=== PATIENT | male | born 1935 | race Asian ===

== ENCOUNTER 2017-04-17 15:09 | Inpatient (IN) | payer OTHER ==
[~2017-04-17] VITALS: Ht 167.6 cm; Wt 77.1 kg
[~2017-04-17 15:09] MED LIST: 384 PO; ALFUZOSIN HYDRO10 MG PO; AZOPT OPTH OD; AZOR 5 MG-40 MG1 TAB PO; BONIVA150 M1 PO; BYSTOLIC10 M1 PO; CARDURA8 MG PO; CARVEDILOL12.5 MG PO; CEL100 PO; CELEBREX200 MG PO; CLOPIDOGREL75 MG PO; CRESTOR20 M1 PO; CRESTOR20 MG PO; DESMOPRESSIN0.2 MG PO; DIABETA5 MG PO; DOCUSATE CALCI250 MG PO; ESCITALOPRAM10 MG PO; GABARONE300 MG PO; GLYBURIDE AND M1 TA1 PO; HEP-FORTE1 CAP PO; LOVAZA1 G1 PO; LOVAZA1 GM PO; METFORMIN500 M1 PO; METOPROLOL SUCC50 M1 PO; MINOCIN PO; NEURONTIN300 MG PO; NEXIUM20 M PO; NYAMYC100000 U/G TP; PLAVIX75 MG PO; PRO40 PO; RAPAFLO8 M1 PO; RESTASIS0.051 OP; TRE400 PO; TRIBENZOR1 TA1 PO; VICTOZA6 MG/M1 SC; WELCHOL3.75 GM/Pa PO; WELCHOL625 MG PO; ZESTRIL5 MG PO; ZOLPIDEM TART10 MG PO; [UNRECOGNIZED DRUG - CODE] PO
[2017-04-17 20:56] LABS: BASOPHIL % 0.4 % (0-2); PLATELET COUNT 261 x10^3mcL (130-400); RED CELL DISTRIBUTION WIDTH 14.4 % (11.5-14.5)
[2017-04-17 21:04] LABS: CALCIUM 9.8 mg/dL (8.5-10.1); CHLORIDE SERUM 103 mmol/L (98-107); CREATININE SERUM 0.8 mg/dL (0.7-1.3); GLUCOSE SERUM 94 mg/dL (74-106); POTASSIUM SERUM 4.2 mmol/L (3.5-5.1); SODIUM SERUM 139 mmol/L (136-145)
[2017-04-17 21:08] LABS: ALBUMIN 3.6 g/dL (3.4-5.0); ALKALINE PHOSPHATASE 106 U/L (46-116); ALT/SGPT 28 U/L (16-63); AMYLASE 45 U/L (25-115); AST/SGOT 28 U/L (15-37); BILIRUBIN TOTAL 0.69 mg/dL (0.20-1.00); LIPASE 176 IU/L (73-393); TOTAL PROTEIN, SERUM 7.8 g/dL (6.4-8.2)
[2017-04-17 22:55] LABS: microscopic required? NO
[2017-04-17 23:08] LABS: UA SPECIFIC GRAVITY 1.025 (1.005-1.035); urine erythrocyte NEGATIVE (NEGATIVE)
[2017-04-18] VITALS (8 sets, daily range): BP systolic 115–168; BP diastolic 50–69; Ht 167.6 cm; Wt 77.1 kg
[2017-04-18 01:09] LABS: CHOLESTEROL/HDL RATIO 3.7
[2017-04-18 01:11] LABS: T3 TOTAL 0.68 ng/mL
[2017-04-18 01:16] LABS: FREE T4 0.94 ng/dL (0.76-1.46); FREE THYROXINE INDEX 1.9 ug/dL (1.4-4.5); T4(THYROXINE) 5.4 ug/dL (4.7-13.3)
[2017-04-19] VITALS (7 sets, daily range): BP systolic 119–160; BP diastolic 50–61
[2017-04-19 06:13] LABS: BASOPHIL % 0.3 % (0-2); PLATELET COUNT 211 x10^3mcL (130-400); RED CELL DISTRIBUTION WIDTH 14.3 % (11.5-14.5)
[2017-04-19 06:25] LABS: CALCIUM 9.1 mg/dL (8.5-10.1); CARBON DIOXIDE 28.6 mmol/L (21-32); CHLORIDE SERUM 106 mmol/L (98-107); CREATININE SERUM 0.7 mg/dL (0.7-1.3); GLUCOSE SERUM 98 mg/dL (74-106); MAGNESIUM 1.8 mg/dL (1.8-2.4); POTASSIUM SERUM 3.4 mmol/L (3.5-5.1); SODIUM SERUM 140 mmol/L (136-145)
[2017-04-20 06:18] VITALS: BP 152/62
[2017-04-20 06:20] LABS: BASOPHIL % 0.5 % (0-2); PLATELET COUNT 191 x10^3mcL (130-400)
[2017-04-20 06:40] LABS: RED CELL DISTRIBUTION WIDTH 15.4 % (11.5-14.5)
[2017-04-20 06:43] LABS: CARBON DIOXIDE 24.7 mmol/L (21-32); CHLORIDE SERUM 108 mmol/L (98-107); CREATININE SERUM 0.6 mg/dL (0.7-1.3); GLUCOSE SERUM 127 mg/dL (74-106); MAGNESIUM 1.7 mg/dL (1.8-2.4); PHOSPHOROUS 3.5 mg/dL (2.5-4.9); POTASSIUM SERUM 3.8 mmol/L (3.5-5.1); SODIUM SERUM 142 mmol/L (136-145)
[2017-04-20 08:07] VITALS: BP 155/62
[2017-04-20 21:48] VITALS: BP 147/67
[2017-04-21 05:44] VITALS: BP 128/62
[2017-04-21 06:01] LABS: BASOPHIL % 0.4 % (0-2); PLATELET COUNT 198 x10^3mcL (130-400)
[2017-04-21 06:42] LABS: CALCIUM 9.5 mg/dL (8.5-10.1); CARBON DIOXIDE 28.5 mmol/L (21-32); CHLORIDE SERUM 105 mmol/L (98-107); CREATININE SERUM 0.8 mg/dL (0.7-1.3); GLUCOSE SERUM 149 mg/dL (74-106); PHOSPHOROUS 3.8 mg/dL (2.5-4.9); POTASSIUM SERUM 3.8 mmol/L (3.5-5.1); SODIUM SERUM 142 mmol/L (136-145)
[2017-04-21 06:58] LABS: RED CELL DISTRIBUTION WIDTH 14.8 % (11.5-14.5)
[2017-04-21 09:29] VITALS: BP 112/61
[2017-04-21 17:34] VITALS: BP 146/59
[2017-04-21 21:02] VITALS: BP 126/59
[2017-04-22 06:27] LABS: CALCIUM 9.2 mg/dL (8.5-10.1); CHLORIDE SERUM 104 mmol/L (98-107); CREATININE SERUM 0.8 mg/dL (0.7-1.3); GLUCOSE SERUM 161 mg/dL (74-106); PHOSPHOROUS 3.7 mg/dL (2.5-4.9); POTASSIUM SERUM 3.8 mmol/L (3.5-5.1); SODIUM SERUM 141 mmol/L (136-145)
[2017-04-22 06:42] VITALS: BP 131/61
[2017-04-22 07:04] LABS: BASOPHIL % 0.3 % (0-2); PLATELET COUNT 194 x10^3mcL (130-400)
[2017-04-22 09:59] VITALS: BP 158/64
[2017-04-22] MEDS ORDERED: FLO4 PO (10:33)
[2017-04-22] MEDS ORDERED: SIMETHICONE80 MG CH (10:34)
[2017-04-22] MEDS ORDERED: COL100 PO (10:34)
[2017-04-22] MEDS ORDERED: MIRUD PO (10:34)
[2017-04-22] MEDS ORDERED: BACO TOP (10:36)
[2017-04-22] MEDS ORDERED: HIBICLENS118 ML TOP (10:36)
[2017-04-22 11:24] VITALS: BP 158/64
== END 2017-04-22 14:00 | DRG 388 ==
LOC: ED 15:09 → DU 23:15 → MU 23:15 → DU 04-18 00:01 → MU 04-19 07:41
PROVIDERS: Emergency Medicine; Family Medicine; Internal Medicine Gastroenterology; ADMIT Family Medicine
PROC: 0DJD8ZZ Inspection of Lower Intestinal Tract, Via Natural or Artificial Opening Endoscopic (ICD-10-PCS; principal; 2017-04-21 11:00)
PROC: 0DJD8ZZ Inspection of Lower Intestinal Tract, Via Natural or Artificial Opening Endoscopic (ICD-10-PCS; 2017-04-21 11:00)
DX: K56.7 Ileus, unspecified (principal); N17.0 Acute kidney failure with tubular necrosis; E43 Unspecified severe protein-calorie malnutrition; I50.43 Acute on chronic combined systolic (congestive) and diastolic (congestive) heart failure; D68.69 Other thrombophilia; I42.9 Cardiomyopathy, unspecified; K62.7 Radiation proctitis; Y63.2 Overdose of radiation given during therapy; E11.51 Type 2 diabetes mellitus with diabetic peripheral angiopathy without gangrene; E11.59 Type 2 diabetes mellitus with other circulatory complications; G62.9 Polyneuropathy, unspecified; D64.9 Anemia, unspecified; E78.5 Hyperlipidemia, unspecified; E78.1 Pure hyperglyceridemia; Z22.322 Carrier or suspected carrier of Methicillin resistant Staphylococcus aureus; Z85.040 Personal history of malignant carcinoid tumor of rectum; Z90.49 Acquired absence of other specified parts of digestive tract; Z93.3 Colostomy status; Z92.3 Personal history of irradiation; Z92.21 Personal history of antineoplastic chemotherapy; Z79.4 Long term (current) use of insulin; Z79.82 Long term (current) use of aspirin; Y78.1 Therapeutic (nonsurgical) and rehabilitative radiological devices associated with adverse incidents; Y92.009 Unspecified place in unspecified non-institutional (private) residence as the place of occurrence of the external cause
CPT/HCPCS: 45330; 45378; 82962; 83880; 84439; 97110-GP; 97116-GP; 97530-GP; J0360; J1200; J1610; J2250; J2310; J2765; J3010; J3490; J7030; J7042; Q0092; Q9963; Q9966

== ENCOUNTER 2017-06-03 12:09 | Inpatient (IN) | payer OTHER ==
[~2017-06-03] VITALS: Ht 167.6 cm; Wt 64.1 kg
[~2017-06-03 12:09] MED LIST changes: +BACO TOP; +COL100 PO; +FLO4 PO; +HIBICLENS118 ML TOP; +MIRUD PO; +SIMETHICONE80 MG CH
[2017-06-03 14:04] LABS: BASOPHIL % 0.2 % (0-2); PLATELET COUNT 177 x10^3mcL (130-400); RED CELL DISTRIBUTION WIDTH 14.2 % (11.5-14.5)
[2017-06-03] MEDS ORDERED: BICARSIM80 M1 PO (14:20)
[2017-06-03] MEDS ORDERED: FERROUS SULFAT325 M2 (14:23)
[2017-06-03] MEDS ORDERED: LAXATIVE5 M1 PO (14:23)
[2017-06-03] MEDS ORDERED: FERROUS GLUCON324 MG PO (14:25)
[2017-06-03] MEDS ORDERED: FLEET ENEMA135 ML PR (14:25)
[2017-06-03] MEDS ORDERED: POLYOX95% PO (14:26)
[2017-06-03] MEDS ORDERED: RELION HUMUL100 U/M2 (14:27)
[2017-06-03] MEDS ORDERED: LAC PO (14:27)
[2017-06-03] MEDS ORDERED: SAXENDA6 MG/ML (14:28)
[2017-06-03 14:29] LABS: CALCIUM 9.6 mg/dL (8.5-10.1); CARBON DIOXIDE 32.9 mmol/L (21-32); CHLORIDE SERUM 97 mmol/L (98-107); CREATININE SERUM 0.7 mg/dL (0.7-1.3); GLUCOSE SERUM 216 mg/dL (74-106); POTASSIUM SERUM 4.1 mmol/L (3.5-5.1); SODIUM SERUM 134 mmol/L (136-145)
[2017-06-03] MEDS ORDERED: MAC100 PO (14:29)
[2017-06-03] MEDS ORDERED: MAALOX ADVANCE148 ML PO (14:29)
[2017-06-03] MEDS ORDERED: NORCO1 TA2 PO (14:30)
[2017-06-03] MEDS ORDERED: QUALITY CH400 MG/5 M PO (14:30)
[2017-06-03] MEDS ORDERED: PROTONIX40 MG PO (14:30)
[2017-06-03] MEDS ORDERED: PYRIDIUM100 MG PO (14:31)
[2017-06-03] MEDS ORDERED: ZOLOFT50 MG PO (14:32)
[2017-06-03] MEDS ORDERED: PAIN RELIEVER325 MG PO (14:32)
[2017-06-03 14:33] LABS: ALBUMIN 3.5 g/dL (3.4-5.0); ALKALINE PHOSPHATASE 88 U/L (46-116); ALT/SGPT 13 U/L (16-63); AMYLASE 52 U/L (25-115); AST/SGOT 13 U/L (15-37); BILIRUBIN TOTAL 0.2 mg/dL (0.20-1.00); LIPASE 345 IU/L (73-393); TOTAL PROTEIN, SERUM 7.2 g/dL (6.4-8.2)
[2017-06-03 14:56] LABS: T3 TOTAL 0.68 ng/mL
[2017-06-03 15:31] LABS: FREE T4 1.07 ng/dL (0.76-1.46); FREE THYROXINE INDEX 2.9 ug/dL (1.4-4.5); T4(THYROXINE) 7.3 ug/dL (4.7-13.3)
[2017-06-03 15:46] LABS: CHOLESTEROL/HDL RATIO 1.9; MAGNESIUM 1.7 mg/dL (1.8-2.4); PHOSPHOROUS 2.1 mg/dL (2.5-4.9)
[2017-06-03 15:57] VITALS: BP 131/54
[2017-06-03] MEDS ORDERED: METOPROLOL TART50 MG PO (17:31)
[2017-06-03] MEDS ORDERED: FENOFIBRATE MI134 MG PO ×2 (17:32→17:33)
[2017-06-03 18:45] VITALS: BP 166/68
[2017-06-03 20:29] VITALS: BP 117/48
[2017-06-03 21:00] VITALS: BP 101/30; BP 103/40
[2017-06-03 22:05] VITALS: BP 101/38
[2017-06-04] VITALS (9 sets, daily range): BP systolic 94–130; BP diastolic 38–52
[2017-06-04 06:54] LABS: BASOPHIL % 0.4 % (0-2); PLATELET COUNT 138 x10^3mcL (130-400)
[2017-06-04 07:05] LABS: CARBON DIOXIDE 27.7 mmol/L (21-32); CHLORIDE SERUM 103 mmol/L (98-107); CREATININE SERUM 0.8 mg/dL (0.7-1.3); GLUCOSE SERUM 128 mg/dL (74-106); MAGNESIUM 1.5 mg/dL (1.8-2.4); PHOSPHOROUS 1.9 mg/dL (2.5-4.9); POTASSIUM SERUM 4.2 mmol/L (3.5-5.1); SODIUM SERUM 138 mmol/L (136-145)
[2017-06-04 07:07] LABS: RED CELL DISTRIBUTION WIDTH 14.9 % (11.5-14.5)
[2017-06-05 05:18] VITALS: BP 143/53
[2017-06-05 06:19] LABS: BASOPHIL % 0.4 % (0-2); PLATELET COUNT 144 x10^3mcL (130-400)
[2017-06-05 07:15] LABS: CALCIUM 9.1 mg/dL (8.5-10.1); CARBON DIOXIDE 27.8 mmol/L (21-32); CHLORIDE SERUM 103 mmol/L (98-107); CREATININE SERUM 0.7 mg/dL (0.7-1.3); GLUCOSE SERUM 130 mg/dL (74-106); MAGNESIUM 2.1 mg/dL (1.8-2.4); PHOSPHOROUS 2.7 mg/dL (2.5-4.9); POTASSIUM SERUM 4.2 mmol/L (3.5-5.1); SODIUM SERUM 138 mmol/L (136-145)
[2017-06-05 10:03] VITALS: BP 154/56
[2017-06-05 14:06] VITALS: BP 148/49
[2017-06-05 14:42] VITALS: BP 148/49
== END 2017-06-05 16:50 | disposition short-term general hospital (02) | DRG 393 ==
LOC: ED 12:09 → DU 13:52
PROVIDERS: Emergency Medicine; ADMIT Family Medicine
DX: K63.2 Fistula of intestine (principal); N17.0 Acute kidney failure with tubular necrosis; E87.1 Hypo-osmolality and hyponatremia; E83.39 Other disorders of phosphorus metabolism; E11.51 Type 2 diabetes mellitus with diabetic peripheral angiopathy without gangrene; G62.9 Polyneuropathy, unspecified; E78.1 Pure hyperglyceridemia; D64.9 Anemia, unspecified; I10 Essential (primary) hypertension; Z93.3 Colostomy status; Z85.040 Personal history of malignant carcinoid tumor of rectum; Z92.21 Personal history of antineoplastic chemotherapy; Z92.3 Personal history of irradiation; Z86.73 Personal history of transient ischemic attack (TIA), and cerebral infarction without residual deficits; Z79.84 Long term (current) use of oral hypoglycemic drugs; Z79.4 Long term (current) use of insulin
CPT/HCPCS: 82962; 83880; 84439; J1885; J1956; J3475; J3490; J7030; Q0092; Q9966

== ENCOUNTER 2017-06-30 21:09 | Inpatient (IN) | payer OTHER ==
[~2017-06-30] VITALS: Ht 172.7 cm; Wt 72.6 kg
[~2017-06-30 21:09] MED LIST changes: +BICARSIM80 M1 PO; +FENOFIBRATE MI134 MG PO; +FERROUS GLUCON324 MG PO; +FERROUS SULFAT325 M2; +FLEET ENEMA135 ML PR; +LAC PO; +LAXATIVE5 M1 PO; +MAALOX ADVANCE148 ML PO; +MAC100 PO; +METOPROLOL TART50 MG PO; +NORCO1 TA2 PO; +PAIN RELIEVER325 MG PO; +POLYOX95% PO; +PROTONIX40 MG PO; +PYRIDIUM100 MG PO; +QUALITY CH400 MG/5 M PO; +RELION HUMUL100 U/M2; +SAXENDA6 MG/ML; +ZOLOFT50 MG PO
[2017-06-30] MEDS ORDERED: CLOPIDOGREL75 M1 PO (21:58)
[2017-06-30 22:30] LABS: BASOPHIL % 0.4 % (0-2); PLATELET COUNT 278 x10^3mcL (130-400)
[2017-06-30 22:33] LABS: RED CELL DISTRIBUTION WIDTH 15.6 % (11.5-14.5)
[2017-06-30 22:40] LABS: UA SPECIFIC GRAVITY 1.015 (1.005-1.035); microscopic required? YES; urine erythrocyte 3+ (NEGATIVE)
[2017-06-30 22:46] LABS: CALCIUM 9.8 mg/dL (8.5-10.1); CARBON DIOXIDE 20.3 mmol/L (21-32); CHLORIDE SERUM 98 mmol/L (98-107); GLUCOSE SERUM 137 mg/dL (74-106); POTASSIUM SERUM 4.1 mmol/L (3.5-5.1); SODIUM SERUM 128 mmol/L (136-145)
[2017-06-30 22:51] LABS: ALBUMIN 3.5 g/dL (3.4-5.0); ALKALINE PHOSPHATASE 62 U/L (46-116); ALT/SGPT 16 U/L (16-63); AST/SGOT 16 U/L (15-37); BILIRUBIN TOTAL 0.3 mg/dL (0.20-1.00); TOTAL PROTEIN, SERUM 7.7 g/dL (6.4-8.2)
[2017-07-01 00:22] VITALS: BP 111/76
[2017-07-01 00:29] VITALS: Ht 172.7 cm; Wt 72.6 kg
[2017-07-01 00:50] LABS: FREE T4 1.32 ng/dL (0.76-1.46); FREE THYROXINE INDEX 3.4 ug/dL (1.4-4.5); T4(THYROXINE) 8.4 ug/dL (4.7-13.3)
[2017-07-01 02:05] LABS: T3 TOTAL 0.84 ng/mL
[2017-07-01] MEDS ORDERED: VICTOZA6 MG/M1 SC (03:25)
[2017-07-01] MEDS ORDERED: FARXIGA5 MG PO (03:26)
[2017-07-01] MEDS ORDERED: AMARYL4 MG PO (03:26)
[2017-07-01] MEDS ORDERED: BENTYL10 MG PO (03:27)
[2017-07-01] MEDS ORDERED: LOMOTIL1 TAB PO (03:27)
[2017-07-01 03:30] LABS: MAGNESIUM 2.2 mg/dL (1.8-2.4); PHOSPHOROUS 3.5 mg/dL (2.5-4.9)
[2017-07-01] MEDS ORDERED: [UNRECOGNIZED DRUG - CODE] PO (03:30)
[2017-07-01] MEDS ORDERED: VASCEPA1 GM PO (03:31)
[2017-07-01 05:19] VITALS: BP 111/53
[2017-07-01 14:06] VITALS: BP 101/44
[2017-07-01 17:35] VITALS: BP 123/53
[2017-07-01 21:54] VITALS: BP 89/41
[2017-07-02 05:32] VITALS: BP 93/42
[2017-07-02 09:02] LABS: CALCIUM 8.8 mg/dL (8.5-10.1); CARBON DIOXIDE 20.5 mmol/L (21-32); CHLORIDE SERUM 108 mmol/L (98-107); CREATININE SERUM 0.7 mg/dL (0.7-1.3); GLUCOSE SERUM 150 mg/dL (74-106); POTASSIUM SERUM 3.8 mmol/L (3.5-5.1); SODIUM SERUM 137 mmol/L (136-145)
[2017-07-02 09:46] LABS: BASOPHIL % 0.5 % (0-2); PLATELET COUNT 221 x10^3mcL (130-400)
[2017-07-02 10:01] VITALS: BP 124/49
[2017-07-02 10:06] LABS: RED CELL DISTRIBUTION WIDTH 15.6 % (11.5-14.5)
[2017-07-02 12:22] LABS: MAGNESIUM 2.1 mg/dL (1.8-2.4); PHOSPHOROUS 3.2 mg/dL (2.5-4.9)
[2017-07-02 13:25] VITALS: BP 107/49
[2017-07-02 16:27] VITALS: BP 103/46
[2017-07-02 21:03] VITALS: BP 116/42
[2017-07-03 05:24] VITALS: BP 152/59
[2017-07-03 05:58] LABS: BASOPHIL % 0.5 % (0-2); PLATELET COUNT 238 x10^3mcL (130-400)
[2017-07-03 06:07] LABS: RED CELL DISTRIBUTION WIDTH 15.8 % (11.5-14.5)
[2017-07-03 06:14] LABS: CALCIUM 8.9 mg/dL (8.5-10.1); CARBON DIOXIDE 23.8 mmol/L (21-32); CHLORIDE SERUM 108 mmol/L (98-107); CREATININE SERUM 0.7 mg/dL (0.7-1.3); GLUCOSE SERUM 90 mg/dL (74-106); POTASSIUM SERUM 3.9 mmol/L (3.5-5.1); SODIUM SERUM 140 mmol/L (136-145)
[2017-07-03 10:13] VITALS: BP 139/56
[2017-07-03 15:23] VITALS: BP 138/53
[2017-07-03 17:35] VITALS: BP 117/47
[2017-07-03 21:29] VITALS: BP 111/42
[2017-07-04 05:32] VITALS: BP 131/47
[2017-07-04 06:11] LABS: BASOPHIL % 0.5 % (0-2); PLATELET COUNT 240 x10^3mcL (130-400)
[2017-07-04 06:16] LABS: CALCIUM 8.6 mg/dL (8.5-10.1); CHLORIDE SERUM 105 mmol/L (98-107); CREATININE SERUM 0.6 mg/dL (0.7-1.3); GLUCOSE SERUM 106 mg/dL (74-106); POTASSIUM SERUM 3.5 mmol/L (3.5-5.1); SODIUM SERUM 140 mmol/L (136-145)
[2017-07-04 06:40] LABS: RED CELL DISTRIBUTION WIDTH 15.6 % (11.5-14.5)
[2017-07-04 09:34] VITALS: BP 135/52
[2017-07-04 13:06] VITALS: BP 137/55
[2017-07-04 17:22] VITALS: BP 131/51
[2017-07-04 21:48] VITALS: BP 142/56
[2017-07-05 05:42] VITALS: BP 149/59
[2017-07-05 05:51] LABS: CALCIUM 8.8 mg/dL (8.5-10.1); CARBON DIOXIDE 21.7 mmol/L (21-32); CHLORIDE SERUM 109 mmol/L (98-107); CREATININE SERUM 0.8 mg/dL (0.7-1.3); GLUCOSE SERUM 170 mg/dL (74-106); POTASSIUM SERUM 3.9 mmol/L (3.5-5.1); SODIUM SERUM 141 mmol/L (136-145)
[2017-07-05 06:26] LABS: BASOPHIL % 0.5 % (0-2); PLATELET COUNT 254 x10^3mcL (130-400)
[2017-07-05 07:15] LABS: RED CELL DISTRIBUTION WIDTH 15.6 % (11.5-14.5)
[2017-07-05 09:32] VITALS: BP 158/66
[2017-07-05 09:43] VITALS: BP 158/66
[2017-07-05 12:23] VITALS: BP 114/46
== END 2017-07-05 17:40 | DRG 689 ==
LOC: ED 21:09 → DU 23:08
PROVIDERS: Emergency Medicine; Family Medicine; Family Medicine Sports Medicine; ADMIT Family Medicine
DX: N39.0 Urinary tract infection, site not specified (principal); N17.0 Acute kidney failure with tubular necrosis; E87.1 Hypo-osmolality and hyponatremia; D68.69 Other thrombophilia; I69.354 Hemiplegia and hemiparesis following cerebral infarction affecting left non-dominant side; K56.7 Ileus, unspecified; E11.65 Type 2 diabetes mellitus with hyperglycemia; R31.9 Hematuria, unspecified; E78.5 Hyperlipidemia, unspecified; D63.8 Anemia in other chronic diseases classified elsewhere; N40.0 Benign prostatic hyperplasia without lower urinary tract symptoms; Z68.24 Body mass index [BMI] 24.0-24.9, adult; Z85.040 Personal history of malignant carcinoid tumor of rectum
CPT/HCPCS: 76770; 82962; 83880; 84439; 97110-GP; J0696; J1815; J2270; J2543; J3490; J7030; J7040; J7042; J7070; Q0092

== ENCOUNTER 2017-11-01 11:12 | Inpatient (IN) | payer OTHER ==
[~2017-11-01] VITALS: Ht 172.7 cm; Wt 60.0 kg
[~2017-11-01 11:12] MED LIST changes: +AMARYL4 MG PO; +BENTYL10 MG PO; +CLOPIDOGREL75 M1 PO; +FARXIGA5 MG PO; +LOMOTIL1 TAB PO; +VASCEPA1 GM PO; +[UNRECOGNIZED DRUG - CODE] PO
[2017-11-01 11:22] VITALS: Ht 172.7 cm; Wt 60.0 kg
[2017-11-01 15:20] LABS: UA SPECIFIC GRAVITY 1.015 (1.005-1.035); microscopic required? YES; urine erythrocyte 3+ (NEGATIVE)
[2017-11-01 17:14] VITALS: BP 160/61
[2017-11-01] MEDS ORDERED: TRILIPIX135 M1 PO (20:24)
[2017-11-01] MEDS ORDERED: NEXIUM40 MG PO (20:52)
[2017-11-01] MEDS ORDERED: INVOKANA300 MG PO (20:54)
[2017-11-01] MEDS ORDERED: AMOXICILLIN/CLA1 TA6 PO (20:55)
[2017-11-01 21:00] LABS: CALCIUM 9.5 mg/dL (8.5-10.1); CARBON DIOXIDE 30.3 mmol/L (21-32); CHLORIDE SERUM 105 mmol/L (98-107); CREATININE SERUM 0.7 mg/dL (0.7-1.3); GLUCOSE SERUM 176 mg/dL (74-106); POTASSIUM SERUM 4.1 mmol/L (3.5-5.1); SODIUM SERUM 142 mmol/L (136-145)
[2017-11-01 21:04] LABS: BASOPHIL % 0.4 % (0-2)
[2017-11-01 21:06] LABS: PLATELET COUNT 424 x10^3mcL (130-400); RED CELL DISTRIBUTION WIDTH 18.3 % (11.5-14.5)
[2017-11-01 21:07] LABS: CHOLESTEROL/HDL RATIO 5.7; MAGNESIUM 2.1 mg/dL (1.8-2.4); PHOSPHOROUS 3.6 mg/dL (2.5-4.9)
[2017-11-01 21:18] LABS: T3 TOTAL 0.6 ng/mL
[2017-11-01 21:28] LABS: FREE T4 1.08 ng/dL (0.76-1.46); FREE THYROXINE INDEX 2.8 ug/dL (1.4-4.5); T4(THYROXINE) 7.7 ug/dL (4.7-13.3)
[2017-11-01 21:39] VITALS: BP 181/79
[2017-11-02 00:23] VITALS: BP 134/62
[2017-11-02 06:46] LABS: BASOPHIL % 0.4 % (0-2)
[2017-11-02 06:48] VITALS: BP 124/51
[2017-11-02 07:00] LABS: PLATELET COUNT 471 x10^3mcL (130-400); RED CELL DISTRIBUTION WIDTH 18.1 % (11.5-14.5)
[2017-11-02 07:14] LABS: CALCIUM 9.2 mg/dL (8.5-10.1); CARBON DIOXIDE 25.2 mmol/L (21-32); CHLORIDE SERUM 106 mmol/L (98-107); CREATININE SERUM 0.7 mg/dL (0.7-1.3); GLUCOSE SERUM 73 mg/dL (74-106); PHOSPHOROUS 3.2 mg/dL (2.5-4.9); POTASSIUM SERUM 3.9 mmol/L (3.5-5.1); SODIUM SERUM 142 mmol/L (136-145)
[2017-11-02 09:33] VITALS: BP 125/40
[2017-11-02 12:15] VITALS: BP 144/57
[2017-11-02 16:43] VITALS: BP 134/50
[2017-11-02 22:06] VITALS: BP 112/44
[2017-11-03 05:48] VITALS: BP 115/40
[2017-11-03 07:32] LABS: BASOPHIL % 0.4 % (0-2); PLATELET COUNT 327 x10^3mcL (130-400)
[2017-11-03 07:37] LABS: RED CELL DISTRIBUTION WIDTH 18.3 % (11.5-14.5)
[2017-11-03 07:43] LABS: CALCIUM 8.9 mg/dL (8.5-10.1); CARBON DIOXIDE 22.3 mmol/L (21-32); CHLORIDE SERUM 110 mmol/L (98-107); CREATININE SERUM 0.8 mg/dL (0.7-1.3); GLUCOSE SERUM 83 mg/dL (74-106); POTASSIUM SERUM 3.8 mmol/L (3.5-5.1); SODIUM SERUM 141 mmol/L (136-145)
[2017-11-03 09:50] VITALS: BP 130/55
[2017-11-03] MEDS ORDERED: AUG500 PO (13:14)
[2017-11-03] MEDS ORDERED: LAC PO (13:14)
[2017-11-03 13:40] VITALS: BP 138/54
== END 2017-11-03 16:45 | disposition home health service (06) | DRG 689 ==
LOC: ED 11:12 → DU 16:15
PROVIDERS: Family Medicine
DX: N39.0 Urinary tract infection, site not specified (principal); N17.0 Acute kidney failure with tubular necrosis; K86.1 Other chronic pancreatitis; I69.354 Hemiplegia and hemiparesis following cerebral infarction affecting left non-dominant side; R31.0 Gross hematuria; E11.51 Type 2 diabetes mellitus with diabetic peripheral angiopathy without gangrene; K21.9 Gastro-esophageal reflux disease without esophagitis; I10 Essential (primary) hypertension; R80.9 Proteinuria, unspecified; F32.9 Major depressive disorder, single episode, unspecified; E78.5 Hyperlipidemia, unspecified; Z85.040 Personal history of malignant carcinoid tumor of rectum; Z79.84 Long term (current) use of oral hypoglycemic drugs; Z87.891 Personal history of nicotine dependence; Z93.3 Colostomy status
CPT/HCPCS: 82962; 83880; 84439; 97110-GP; J0696; J1815; J2543; J3490; J7030; Q0092

== ENCOUNTER 2017-11-22 12:42 | Emergency (ER) | payer OTHER ==
[~2017-11-22] VITALS: Ht 170.2 cm; Wt 59.0 kg
[~2017-11-22 12:42] MED LIST changes: +AMOXICILLIN/CLA1 TA6 PO; +AUG500 PO; +INVOKANA300 MG PO; +NEXIUM40 MG PO; +TRILIPIX135 M1 PO
[2017-11-22 13:04] VITALS: Ht 170.2 cm; Wt 59.0 kg
[2017-11-22 15:35] VITALS: BP 128/57
== END 2017-11-22 15:35 | disposition home or self-care (01) ==
LOC: ED 12:42
DX: L03.114 Cellulitis of left upper limb (principal); I10 Essential (primary) hypertension; E11.9 Type 2 diabetes mellitus without complications; E78.00 Pure hypercholesterolemia, unspecified; Z86.73 Personal history of transient ischemic attack (TIA), and cerebral infarction without residual deficits

== ENCOUNTER 2017-11-25 12:48 | Emergency (ER) | payer OTHER ==
[~2017-11-25] VITALS: Ht 170.2 cm; Wt 59.0 kg
[2017-11-25 12:52] VITALS: Ht 170.2 cm; Wt 59.0 kg
[2017-11-25 14:28] LABS: BASOPHIL % 0.9 % (0-2); PLATELET COUNT 220 x10^3mcL (130-400)
[2017-11-25 14:32] LABS: RED CELL DISTRIBUTION WIDTH 18.2 % (11.5-14.5)
[2017-11-25 14:55] VITALS: BP 139/57
== END 2017-11-25 14:55 | disposition home or self-care (01) ==
LOC: ED 12:48
PROVIDERS: Emergency Medicine
DX: I80.9 Phlebitis and thrombophlebitis of unspecified site (principal); I10 Essential (primary) hypertension; E11.9 Type 2 diabetes mellitus without complications; E78.00 Pure hypercholesterolemia, unspecified
CPT/HCPCS: 36415; Q0092

== ENCOUNTER 2018-01-22 14:18 | Inpatient (IN) | payer OTHER ==
[~2018-01-22] VITALS: Ht 172.7 cm; Wt 62.1 kg
[2018-01-22 15:59] LABS: CALCIUM 10.1 mg/dL (8.5-10.1); CHLORIDE SERUM 103 mmol/L (98-107); CREATININE SERUM 0.8 mg/dL (0.7-1.3); GLUCOSE SERUM 217 mg/dL (74-106); POTASSIUM SERUM 4.4 mmol/L (3.5-5.1); SODIUM SERUM 137 mmol/L (136-145)
[2018-01-22 16:00] LABS: microscopic required? YES; urine erythrocyte 1+ (NEGATIVE)
[2018-01-22 16:04] LABS: ALKALINE PHOSPHATASE 58 U/L (46-116); ALT/SGPT 13 U/L (16-63); AMYLASE 65 U/L (25-115); AST/SGOT 19 U/L (15-37); BASOPHIL % 0.3 % (0-2); BILIRUBIN TOTAL 0.3 mg/dL (0.20-1.00); LIPASE 323 IU/L (73-393); PLATELET COUNT 384 x10^3mcL (130-400); TOTAL PROTEIN, SERUM 7.5 g/dL (6.4-8.2)
[2018-01-22 16:05] LABS: ALBUMIN 3.2 g/dL (3.4-5.0); CHOLESTEROL 123 mg/dL (<200); HDL CHOLESTEROL 26 mg/dL (40-60)
[2018-01-22 16:06] LABS: RED CELL DISTRIBUTION WIDTH 17.4 % (11.5-14.5)
[2018-01-22 16:09] LABS: AMPHETAMINE QUAL UR NONE DETECTED (NEG <=1000)
[2018-01-22 16:28] LABS: MAGNESIUM 1.9 mg/dL (1.8-2.4); PHOSPHOROUS 3.6 mg/dL (2.5-4.9)
[2018-01-22] MEDS ORDERED: HCTZ/TRIAMTEREN1 CA1 PO (16:37)
[2018-01-22] MEDS ORDERED: EPZICOM1 TAB (16:37)
[2018-01-22] MEDS ORDERED: NOR5 PO (16:37)
[2018-01-22] MEDS ORDERED: NORCO1 TA2 PO (16:37)
[2018-01-22 16:38] LABS: T3 TOTAL 0.7 ng/mL
[2018-01-22 16:54] LABS: FREE T4 1.03 ng/dL (0.76-1.46); FREE THYROXINE INDEX 2.1 ug/dL (1.4-4.5); T4(THYROXINE) 6.3 ug/dL (4.7-13.3)
[2018-01-22 19:03] VITALS: BP 139/46
[2018-01-22 21:38] VITALS: BP 110/41
[2018-01-23] VITALS (7 sets, daily range): BP systolic 104–144; BP diastolic 39–66; Ht 172.7 cm; Wt 62.1 kg
[2018-01-23 09:19] LABS: BASOPHIL % 0.5 % (0-2); PLATELET COUNT 336 x10^3mcL (130-400)
[2018-01-23 09:22] LABS: RED CELL DISTRIBUTION WIDTH 17.2 % (11.5-14.5)
[2018-01-23 09:55] LABS: CALCIUM 9.6 mg/dL (8.5-10.1); CHLORIDE SERUM 105 mmol/L (98-107); CREATININE SERUM 0.8 mg/dL (0.7-1.3); GLUCOSE SERUM 98 mg/dL (74-106); MAGNESIUM 2.1 mg/dL (1.8-2.4); PHOSPHOROUS 3.9 mg/dL (2.5-4.9); POTASSIUM SERUM 4.4 mmol/L (3.5-5.1); SODIUM SERUM 139 mmol/L (136-145)
[2018-01-24 06:15] VITALS: BP 146/51
[2018-01-24 10:00] VITALS: BP 129/52
[2018-01-24 14:00] VITALS: BP 126/51
[2018-01-24 20:50] VITALS: BP 135/45
[2018-01-25 05:00] VITALS: BP 119/51
[2018-01-25 06:27] VITALS: BP 137/42
[2018-01-25 06:43] LABS: BASOPHIL % 1.1 % (0-2); PLATELET COUNT 363 x10^3mcL (130-400)
[2018-01-25 06:58] LABS: CALCIUM 9.1 mg/dL (8.5-10.1); CARBON DIOXIDE 24.3 mmol/L (21-32); CHLORIDE SERUM 106 mmol/L (98-107); CREATININE SERUM 0.7 mg/dL (0.7-1.3); GLUCOSE SERUM 105 mg/dL (74-106); MAGNESIUM 1.9 mg/dL (1.8-2.4); PHOSPHOROUS 3.1 mg/dL (2.5-4.9); POTASSIUM SERUM 4.1 mmol/L (3.5-5.1); SODIUM SERUM 140 mmol/L (136-145)
[2018-01-25 07:02] LABS: RED CELL DISTRIBUTION WIDTH 16.9 % (11.5-14.5)
[2018-01-25 07:03] LABS: rbc morphology (normal/abnorm) ABNORMAL (NORMAL)
[2018-01-25 10:12] VITALS: BP 139/48
[2018-01-25] MEDS ORDERED: LEVAQUIN750 MG PO (13:06)
[2018-01-25] MEDS ORDERED: LAC PO (13:10)
[2018-01-25 14:32] VITALS: BP 144/70
[2018-01-25 15:05] VITALS: BP 144/70
== END 2018-01-25 15:40 | DRG 206 ==
LOC: ED 14:18 → DU 15:43
PROVIDERS: Emergency Medicine; Family Medicine Sports Medicine
DX: M94.0 Chondrocostal junction syndrome [Tietze] (principal); I69.354 Hemiplegia and hemiparesis following cerebral infarction affecting left non-dominant side; N39.0 Urinary tract infection, site not specified; E44.0 Moderate protein-calorie malnutrition; I10 Essential (primary) hypertension; N40.0 Benign prostatic hyperplasia without lower urinary tract symptoms; E11.51 Type 2 diabetes mellitus with diabetic peripheral angiopathy without gangrene; D64.9 Anemia, unspecified; F32.9 Major depressive disorder, single episode, unspecified; R31.9 Hematuria, unspecified; E78.00 Pure hypercholesterolemia, unspecified; Z93.3 Colostomy status; Z90.49 Acquired absence of other specified parts of digestive tract; Z98.42 Cataract extraction status, left eye; Z98.41 Cataract extraction status, right eye; Z87.891 Personal history of nicotine dependence; Z85.048 Personal history of other malignant neoplasm of rectum, rectosigmoid junction, and anus; K21.9 Gastro-esophageal reflux disease without esophagitis; Z83.3 Family history of diabetes mellitus
CPT/HCPCS: 82962; 83880; 84439; 97110-GP; 97116-GP; 97530-GP; J0696; J7030; Q0092

== ENCOUNTER 2018-09-07 13:17 | Inpatient (IN) | payer OTHER ==
[2018-09-07] VITALS (7 sets, daily range): BP systolic 113–141; BP diastolic 46–55; Ht 172.7 cm; Wt 57.8 kg
[~2018-09-07] VITALS: Ht 172.7 cm; Wt 57.8 kg
[~2018-09-07 13:17] MED LIST changes: +EPZICOM1 TAB; +HCTZ/TRIAMTEREN1 CA1 PO; +LEVAQUIN750 MG PO; +NOR5 PO
[2018-09-07 14:54] LABS: CALCIUM 8.8 mg/dL (8.5-10.1); CARBON DIOXIDE 20.5 mmol/L (21-32); CHLORIDE SERUM 105 mmol/L (98-107); CREATININE SERUM 0.8 mg/dL (0.7-1.3); GLUCOSE SERUM 231 mg/dL (74-106); POTASSIUM SERUM 5.2 mmol/L (3.5-5.1); SODIUM SERUM 136 mmol/L (136-145)
[2018-09-07 15:28] LABS: BASOPHIL % 0.4 % (0-2); PLATELET COUNT 304 x10^3mcL (130-400)
[2018-09-07 15:32] LABS: RED CELL DISTRIBUTION WIDTH 21.7 % (11.5-14.5)
[2018-09-07 15:41] LABS: rbc morphology (normal/abnorm) ABNORMAL (NORMAL)
[2018-09-07 15:43] LABS: target cell (codocyte) 1+
[2018-09-07 15:44] LABS: ovalocyte/elliptocyte 1+; schistocyte (helmet cell) 1+; tear drop cell (dacryocyte) 1+
[2018-09-07] MEDS ORDERED: RESTASIS MULTI5.5 ML OP (16:45)
[2018-09-07] MEDS ORDERED: LOMOTIL1 TAB PO (16:45)
[2018-09-07] MEDS ORDERED: INVOKANA300 MG PO (16:46)
[2018-09-07] MEDS ORDERED: ZOLOFT50 MG PO (16:46)
[2018-09-07] MEDS ORDERED: FLOMAX0.4 MG PO (16:46)
[2018-09-07] MEDS ORDERED: METFORMIN HYDR500 M1 PO (16:46)
[2018-09-07] MEDS ORDERED: NEU300 PO (16:47)
[2018-09-07] MEDS ORDERED: NOR5 PO (16:47)
[2018-09-07] MEDS ORDERED: FENOFIBRIC ACI135 MG PO (16:48)
[2018-09-07] MEDS ORDERED: ZESTRIL5 MG PO (16:49)
[2018-09-07] MEDS ORDERED: GLIMEPIRIDE4 M1 PO (16:49)
[2018-09-07] MEDS ORDERED: CELEBREX200 MG PO (16:49)
[2018-09-07] MEDS ORDERED: CATAPRES0.1 MG PO (16:50)
[2018-09-07] MEDS ORDERED: TOPROL XL25 MG PO (16:50)
[2018-09-07] MEDS ORDERED: DICYCLOMINE HCL10 MG PO (16:51)
[2018-09-07] MEDS ORDERED: PENTOXIFYL XR400 M1 PO (16:51)
[2018-09-07] MEDS ORDERED: HCTZ/TRIAMTEREN1 CA1 PO (16:51)
[2018-09-07] MEDS ORDERED: [UNRECOGNIZED DRUG - CODE] PO (16:51)
[2018-09-07] MEDS ORDERED: ALL DAY ALLERGY10 M2 PO (16:52)
[2018-09-07] MEDS ORDERED: NEXIUM40 MG PO (16:52)
[2018-09-07] MEDS ORDERED: VASCEPA1 GM PO (16:52)
[2018-09-07] MEDS ORDERED: REG5 PO (16:53)
[2018-09-07] MEDS ORDERED: AMOX/CLAV POT1 TAB PO (16:53)
[2018-09-07 16:55] LABS: MAGNESIUM 1.8 mg/dL (1.8-2.4); PHOSPHOROUS 3.4 mg/dL (2.5-4.9)
[2018-09-07 16:56] LABS: CHOLESTEROL/HDL RATIO 6.9
[2018-09-07 17:03] LABS: T3 TOTAL 0.95 ng/mL
[2018-09-07 17:22] LABS: TOTAL IRON BINDING CAPACITY 436 ug/dL (250-450)
[2018-09-07 17:24] LABS: FREE T4 1.24 ng/dL (0.76-1.46); FREE THYROXINE INDEX 3.1 ug/dL (1.4-4.5); T4(THYROXINE) 8.8 ug/dL (4.7-13.3)
[2018-09-07 17:29] LABS: IRON 14 ug/dL (65-170)
[2018-09-07 19:01] LABS: microscopic required? NO
[2018-09-07 19:23] LABS: UA SPECIFIC GRAVITY 1.015 (1.005-1.035); urine erythrocyte NEGATIVE (NEGATIVE)
[2018-09-07 19:35] LABS: AMPHETAMINE QUAL UR NONE DETECTED (See below)
[2018-09-08 01:53] VITALS: BP 134/59
[2018-09-08 06:08] VITALS: BP 150/51
[2018-09-08 06:50] LABS: CALCIUM 8.4 mg/dL (8.5-10.1); CARBON DIOXIDE 22.4 mmol/L (21-32); CHLORIDE SERUM 109 mmol/L (98-107); CREATININE SERUM 0.7 mg/dL (0.7-1.3); GLUCOSE SERUM 119 mg/dL (74-106); MAGNESIUM 1.9 mg/dL (1.8-2.4); PHOSPHOROUS 3.8 mg/dL (2.5-4.9); POTASSIUM SERUM 4.2 mmol/L (3.5-5.1); SODIUM SERUM 143 mmol/L (136-145)
[2018-09-08 07:59] LABS: BASOPHIL % 1.3 % (0-2); PLATELET COUNT 367 x10^3mcL (130-400)
[2018-09-08 08:04] LABS: RED CELL DISTRIBUTION WIDTH 24.4 % (11.5-14.5)
[2018-09-08 09:04] VITALS: BP 133/55
[2018-09-08 10:58] LABS: TOTAL IRON BINDING CAPACITY 416 ug/dL (250-450)
[2018-09-08 11:00] LABS: IRON 24 ug/dL (65-170)
[2018-09-08 11:25] LABS: RED BLOOD CELLS 4.13 M/mm3 (4.52-5.90)
[2018-09-08 17:15] VITALS: BP 124/54
[2018-09-08 21:54] VITALS: BP 124/48
[2018-09-09 06:17] VITALS: BP 120/50
[2018-09-09 06:38] LABS: BASOPHIL % 0.3 % (0-2); PLATELET COUNT 343 x10^3mcL (130-400)
[2018-09-09 07:05] LABS: CALCIUM 8.9 mg/dL (8.5-10.1); CARBON DIOXIDE 20.9 mmol/L (21-32); CHLORIDE SERUM 103 mmol/L (98-107); CREATININE SERUM 0.8 mg/dL (0.7-1.3); GLUCOSE SERUM 137 mg/dL (74-106); MAGNESIUM 1.9 mg/dL (1.8-2.4); PHOSPHOROUS 3.3 mg/dL (2.5-4.9); POTASSIUM SERUM 4.2 mmol/L (3.5-5.1); SODIUM SERUM 138 mmol/L (136-145)
[2018-09-09 07:08] LABS: RED CELL DISTRIBUTION WIDTH 24.6 % (11.5-14.5)
[2018-09-09 09:23] VITALS: BP 107/49
[2018-09-09 17:38] VITALS: BP 116/50
[2018-09-09 17:38] LABS: rbc morphology (normal/abnorm) ABNORMAL (NORMAL)
[2018-09-09 17:39] LABS: ovalocyte/elliptocyte 1+; schistocyte (helmet cell) 1+; tear drop cell (dacryocyte) 1+
[2018-09-09 20:44] VITALS: BP 120/51
[2018-09-10 04:52] VITALS: BP 103/41
[2018-09-10 07:00] LABS: CALCIUM 8.7 mg/dL (8.5-10.1); CARBON DIOXIDE 22.6 mmol/L (21-32); CHLORIDE SERUM 104 mmol/L (98-107); CREATININE SERUM 0.9 mg/dL (0.7-1.3); GLUCOSE SERUM 130 mg/dL (74-106); LIPASE 494 IU/L (73-393); MAGNESIUM 1.7 mg/dL (1.8-2.4); PHOSPHOROUS 2.9 mg/dL (2.5-4.9); POTASSIUM SERUM 4.3 mmol/L (3.5-5.1); SODIUM SERUM 136 mmol/L (136-145)
[2018-09-10 09:31] VITALS: BP 106/48
[2018-09-10 17:22] VITALS: BP 122/53
[2018-09-10 19:30] VITALS: BP 145/61
[2018-09-11 05:43] VITALS: BP 123/52
[2018-09-11 06:27] LABS: BASOPHIL % 0.5 % (0-2); PLATELET COUNT 351 x10^3mcL (130-400)
[2018-09-11 06:30] LABS: RED CELL DISTRIBUTION WIDTH 25.4 % (11.5-14.5)
[2018-09-11 06:43] LABS: CALCIUM 8.6 mg/dL (8.5-10.1); CARBON DIOXIDE 24.2 mmol/L (21-32); CHLORIDE SERUM 104 mmol/L (98-107); CREATININE SERUM 0.7 mg/dL (0.7-1.3); GLUCOSE SERUM 114 mg/dL (74-106); POTASSIUM SERUM 3.8 mmol/L (3.5-5.1); SODIUM SERUM 136 mmol/L (136-145)
[2018-09-11 09:43] LABS: ovalocyte/elliptocyte 2+; rbc morphology (normal/abnorm) ABNORMAL (NORMAL); schistocyte (helmet cell) 1+
[2018-09-11 09:57] VITALS: BP 120/52
[2018-09-11] MEDS ORDERED: FERROUS SULFAT325 M2 PO (14:02)
== END 2018-09-11 16:35 | DRG 377 ==
LOC: ED 13:17 → MU 15:48
PROVIDERS: Emergency Medicine; Internal Medicine; Internal Medicine Gastroenterology
PROC: 30233N1 Transfusion of Nonautologous Red Blood Cells into Peripheral Vein, Percutaneous Approach (ICD-10-PCS; 2018-09-07)
PROC: 0DB78ZX Excision of Stomach, Pylorus, Via Natural or Artificial Opening Endoscopic, Diagnostic (ICD-10-PCS; principal; 2018-09-10 08:00)
PROC: 0W3P8ZZ Control Bleeding in Gastrointestinal Tract, Via Natural or Artificial Opening Endoscopic (ICD-10-PCS; 2018-09-10 08:00)
DX: K31.811 Angiodysplasia of stomach and duodenum with bleeding (principal); N17.0 Acute kidney failure with tubular necrosis; I69.354 Hemiplegia and hemiparesis following cerebral infarction affecting left non-dominant side; Z68.1 Body mass index [BMI] 19.9 or less, adult; E87.2 Acidosis; K25.7 Chronic gastric ulcer without hemorrhage or perforation; D50.0 Iron deficiency anemia secondary to blood loss (chronic); E11.43 Type 2 diabetes mellitus with diabetic autonomic (poly)neuropathy; K31.84 Gastroparesis; E87.5 Hyperkalemia; S20.211A Contusion of right front wall of thorax, initial encounter; S80.02XA Contusion of left knee, initial encounter; S80.01XA Contusion of right knee, initial encounter; I10 Essential (primary) hypertension; Z93.3 Colostomy status; Z85.048 Personal history of other malignant neoplasm of rectum, rectosigmoid junction, and anus; Z92.3 Personal history of irradiation; Z92.21 Personal history of antineoplastic chemotherapy; Z95.5 Presence of coronary angioplasty implant and graft; Z87.891 Personal history of nicotine dependence; Z79.84 Long term (current) use of oral hypoglycemic drugs; Z79.891 Long term (current) use of opiate analgesic; W18.2XXA Fall in (into) shower or empty bathtub, initial encounter; Y92.002 Bathroom of unspecified non-institutional (private) residence as the place of occurrence of the external cause
CPT/HCPCS: 43235; 82962; 83880; 84439; 97110-GP; 97530-GP; J1610; J2250; J2310; J2916; J3010; J3490; J7030; J7040; J7050; J8597; P9016; Q0092; Q0163

== ENCOUNTER 2018-10-30 19:29 | Inpatient (IN) | payer OTHER ==
[~2018-10-30] VITALS: Ht 172.7 cm; Wt 71.8 kg
[~2018-10-30 19:29] MED LIST changes: +ALL DAY ALLERGY10 M2 PO; +AMOX/CLAV POT1 TAB PO; +CATAPRES0.1 MG PO; +DICYCLOMINE HCL10 MG PO; +FENOFIBRIC ACI135 MG PO; +FERROUS SULFAT325 M2 PO; +FLOMAX0.4 MG PO; +GLIMEPIRIDE4 M1 PO; +METFORMIN HYDR500 M1 PO; +NEU300 PO; +PENTOXIFYL XR400 M1 PO; +REG5 PO; +RESTASIS MULTI5.5 ML OP; +TOPROL XL25 MG PO
[2018-10-30 19:34] VITALS: Ht 172.7 cm; Wt 71.8 kg
[2018-10-30 20:53] LABS: BASOPHIL % 0.2 % (0-2); PLATELET COUNT 232 x10^3mcL (130-400)
[2018-10-30 20:56] LABS: RED CELL DISTRIBUTION WIDTH 26.5 % (11.5-14.5)
[2018-10-30 20:56] LABS: UA SPECIFIC GRAVITY 1.015 (1.005-1.035); microscopic required? YES; urine erythrocyte NEGATIVE (NEGATIVE)
[2018-10-30 21:03] LABS: CALCIUM 8.6 mg/dL (8.5-10.1); CARBON DIOXIDE 26.3 mmol/L (21-32); CHLORIDE SERUM 99 mmol/L (98-107); CREATININE SERUM 0.7 mg/dL (0.7-1.3); GLUCOSE SERUM 224 mg/dL (74-106); POTASSIUM SERUM 3.8 mmol/L (3.5-5.1); SODIUM SERUM 133 mmol/L (136-145)
[2018-10-30 21:15] LABS: ALBUMIN 2.9 g/dL (3.4-5.0); ALKALINE PHOSPHATASE 111 U/L (46-116); ALT/SGPT 25 U/L (16-63); AST/SGOT 56 U/L (15-37); BILIRUBIN TOTAL 0.64 mg/dL (0.20-1.00); TOTAL PROTEIN, SERUM 7.1 g/dL (6.4-8.2)
[2018-10-30 21:38] LABS: CK-MB 0.6 ng/mL (0-3.6)
[2018-10-30] MEDS ORDERED: NEXIUM40 MG PO (22:46)
[2018-10-30] MEDS ORDERED: METFORMIN ER500 M1 PO (22:47)
[2018-10-30] MEDS ORDERED: VASCEPA1 GM PO (22:47)
[2018-10-30] MEDS ORDERED: FERROUS SULFAT325 M2 PO (22:48)
[2018-10-30] MEDS ORDERED: AMBIEN5 MG PO (22:48)
[2018-10-30] MEDS ORDERED: NORCO1 TA2 PO (22:50)
--- NOTE | 2018-10-30 22:55 | NUR ---
REPORT CALLED TO KRISTOPHER AT 4002 ON MED-SURG.
--- NOTE | 2018-10-30 23:20 | NUR ---
RECEIVED PATIENT FROM ER VIA GURNEY. PATIENT IS ALERT AND OREINTED X4. MED SURG PATIENT, DENIES ANY CHEST PAIN OR PRESSURE AT THIS TIME. BREATHING EVEN AND UNLABORED, LUNG SOUNDS CLAR ON RA WITH NO SIGNS OF RESPIRATORY DISTRESS. IV TO THE RIGHT HAND PATENT AND INFUSING WELL. OPEN WOUND TO BUTTOCKS. PATIENT HAS COLOSTOMY WITH LOOSE STOOL IN BAG. PATIENT IS INCONTINENT REPORTED PAIN UPON URINATION. PATIENT IS NON-AMBULATORY WITH LEFT SIDED WEAKNESS. AT BEDSIDE. CALL BUTTON WITHIN REACH. SAFETY PRECAUTIONS IN PLACE. WILL CONTINUE TO MONITOR.
[2018-10-30 23:21] VITALS: BP 137/60
--- NOTE | 2018-10-30 23:31 | NUR ---
RECEIVED PT FROM ER VIA GURNEY ACCOMPANIED BY EMT AND , PT SEEN, ALERT AND ORIENTED, CLEAR SPEECH, DENIES HEADACHE OR DIZZIESS, LEFT FACIAL DROOP WITH LEFT SIDE WEAKNESS DUE TO HX OF CVA, BREATHING EVEN AND UNLABORED ON ROOM AIR, LUNG SOUNDS CLEAR BUT DIMINISHED AT BASE, MEDSURG PT, DENIES CHEST PAIN, IVF TO RH INFUSING WELL, PULSES PALPABLE, TRACE EDEMA NOTED TO BUE AND BLE, GENERALIZED WEAKNESS, AIR MATTRESS IN PLACE, ABD SOFT WITH ACTIVE BS, LEFT SIDE ABD WITH COLOSTOMY BAG NOTED WITH BROWN LOOSE STOOL, INCONTINENT, LEFT SIDE BUTTOCKS WITH SKIN TEAR, PRIMARY NURSE KRISTOPHER AT BEDSIDE.
[2018-10-30 23:45] LABS: CHOLESTEROL/HDL RATIO 9.3; MAGNESIUM 1.4 mg/dL (1.8-2.4); PHOSPHOROUS 2.2 mg/dL (2.5-4.9)
--- NOTE | 2018-10-31 00:19 | NUR ---
ROUNDS MADE, PATIENT IS AWAKE IN BED, DENIES ANY PAIN OR DISCOMFORT. CALL BUTTON WITHIN REACH. SAFETY PRECAUTIONS IN PLACE. WILL CONTINUE TO MONITOR.
--- NOTE | 2018-10-31 01:19 | NUR ---
PATIENT REPORTED PAIN WHEN HE USED THE URINAL, MEDICATED PER EMAR. WILL CONTINUE TO MONITOR.
--- NOTE | 2018-10-31 01:27 | NUR ---
PATIENT REQUESTING FOR SLEEPING MEDICATION AT THIS TIME. DR WANG AWARE, AWAITING FOR NEW ORDER.
--- NOTE | 2018-10-31 02:33 | NUR ---
ROUNDS MADE, PATIENT ASLEEP AT THIS TIME. BREATHING EVEN AND UNLABORE NO SIGNS OF RESPIRATORY DISTRESS. SAFETY PRECAUTIONS IN PLACE. WILL CONTINUE TO MONITOR.
--- NOTE | 2018-10-31 04:14 | NUR ---
ROUNDS MADE, PATIENT IS ASLEEP AT THIS TIME. BREATHING EVEN AND UNLABORED NO SIGNS OF DISTRESS NOTED. SAFETY PRECAUTIONS IN PLACE. WILL CONTINUE TO MONITOR.
[2018-10-31 05:54] VITALS: BP 139/55
--- NOTE | 2018-10-31 06:21 | NUR ---
PER DR WANG TO HOLD MAG-OX NOON DOSE, PATIENT ALREADY HAD TWO DOSES OF MAG PER EMAR.
[2018-10-31 06:54] LABS: BASOPHIL % 0.1 % (0-2); PLATELET COUNT 218 x10^3mcL (130-400)
--- NOTE | 2018-10-31 06:55 | NUR ---
PATIENT IS ALERT AND ORIENTED X4, MEDSURGE PATIENT DENIES CHEST PAIN. LUNG SOUNDS CLEAR ON RA WITH NO SIGNS OF RESPIRATORY DISTRESS. IV RIGHT HAND PATENT, INFUSING WELL. EDEMA NOTED BUE AND BLE. OPEN WOUND ON BUTTOCKS WITH DRESSING CDI. CHANGED COLOSOTOMY BAG THIS MORNING. PATIENT SLEPT MOST OF THE NIGHT WITH NO DISTRESS. SAFETY PRECAUTIONS IN PLACE. WILL ENODORSE TO DAY SHIFT RN.
[2018-10-31 07:15] LABS: RED CELL DISTRIBUTION WIDTH 26.3 % (11.5-14.5)
--- NOTE | 2018-10-31 07:25 | NUR ---
PATIENT RESTING IN BED, NO SIGNS OF DISTRESS NOTED. ENDORSED CARE TO DAY SHIFT RN, ALL QUESTIONS ADDRESSED.
[2018-10-31 07:34] LABS: CALCIUM 8.9 mg/dL (8.5-10.1); CARBON DIOXIDE 27.7 mmol/L (21-32); CHLORIDE SERUM 102 mmol/L (98-107); CREATININE SERUM 0.6 mg/dL (0.7-1.3); GLUCOSE SERUM 115 mg/dL (74-106); MAGNESIUM 1.5 mg/dL (1.8-2.4); PHOSPHOROUS 2.4 mg/dL (2.5-4.9); SODIUM SERUM 138 mmol/L (136-145)
--- NOTE | 2018-10-31 08:43 | NUR ---
RCEIVED PATIENT SLEEPY BUT ARROUSABLE. PATIENT WITH COLOSTOMY AND SEMI LIQUID BROWN STOOL NOTED. PATIENT HAS BEEN ON AND OFF INCONTINENT OF URINE AND HAS BEEN ON BEDREST AND USES A WALKER, W/C. VITALS AT [facility] TIME AT 97.9, 78, 17, 139/55, 96%. LEFT FACIAL DROOP NOTED DU TO HISTORY OF CVA AND LEFT SIDED WEANESS. APTIENT HAS A WOUND TO HT RIGHT BUTTOCKS AND DRESSING WAS APPLIED. PATIENT HAS BEEN WITH BACTERIA IN THE URINE AND HAS BUN AT 28.0 AND WITH ISABEL DHD OF 11.9/35, APITEN TAHAS BEEN LOW ON MAGNESIUM AND PHOS AND BOTH REPLACED IDNICATED. PATIENT ISABEL BEEN ON ROCEPHIN IN THE EMERGENCY PRIOR TO ARRIVAL TO THE FLOOR. PATIENT HAS HISTORY OF DM, CVA, HTN, BPH AND RECUM CA WELL HIGH CHOLESTEROL. WILL CONTINUE TO MONITOR.
[2018-10-31 09:47] VITALS: BP 148/55
--- NOTE | 2018-10-31 11:30 | NUR ---
BLOOD SUGAR AT 141 AND NO COVERAGE WAS INDICATED.
--- NOTE | 2018-10-31 13:12 | NUR ---
Initial Nutrition Assessment- Dx: Dehydration, UTI PMHx: Rectal carcinoma s/p chemoradiation and colectomy w/ colostomy bag x1 yr, H/O CVA w/ residual L sided weakness 20yrs prior, HTN, DM, GERD PSHx: cholecystectomy, colostomy, carotid artery placement, SBO laparotomy, leg surgery for cancer removal. Labs: (10/31) BG 115H, BUN 24H, CRE .6L, P 2.4L, TG 162H, Mg 1.5L, H/H 11.9L/35L Meds: humulin, lactinex, mag-ox, neutra-phos, zoloft, rocephin Diet: CCHO diet x 1day PO Intake: 60% of breakfast 10/31 Ht: 5'8 Wt: 158 lb, 72 kg BMI: 24.1 kg/m2 (normal) IBW: 154 lb, 70 kg %IBW: 103 UBW: unknown Age: 82 yrs old Food Allergies: unknown Skin: Left buttocks/coccyx area w/ skin tear. Estrada: 12 Edema: w/ trace edema to BUE/BLE. GI: abd is soft and flat w/ active bowel sounds. Last BM 10/30/18, noted brown/loose stool in colostomy bag. Pt is a 82 yr sold Turkmen male presents to ED w/ c/o dysuria x1 week and fever of 102'F overnight. Pt lives in a custodial and reports of having multiple episodes of UTI in the past. Pt ambulates w/ front wheelchair and wheelchair at baseline per H&P report. Pt seen sleeping in bed at time of RD visit. +IV infusing per MD orders. Pt opens eyes to verbal stimuli but goes back to sleep. No family present at bedside. Pt appeared of adequate wt but is not yet meeting optimal nutrition w/ current PO intake. Problem with: N/V/D/C: none Problems with: Chewing:no Swallowing: no Current appetite: fair Recent wt change: unknown %wt change: n/a Vitamin/Supplement use: unknown Special diet at home: Diabetic diet Physical activity: unknown Education: is not appropriate at this time. Estimated Nutritional Needs Based on actual body weight 72 kg Energy: 4912-8398 kcal/d (25-30 kcal/kg-Geriatric maintenance) Protein: 86-94 g/d (1.2-1.3 g/kg- Geriatric maintenance and preservation of lean body mass) Fluid: 3127-7768 ml/d (1 ml/kcal-fluid balance) or per doctor Nutrition Diagnosis Increased nutritional needs related to catabolic illness as evidenced by low skin integrity, Estrada score of 12 and presence of wound. Intervention 1. Recommend adding Glucerna Shake BID and Guillermo BID for additional calories and protein. Oral nutritional supplement will provide: 600 kcal and 25 gm protein daily. 2. Encourage pt to increase PO intake. Monitor/Evaluate Goal: PO intake at least 75% of estimated needs Monitor: PO intake, Labs, GI function F/U in 2-3 days as high risk
--- NOTE | 2018-10-31 13:14 | NUR ---
1. Recommend adding Glucerna Shake BID and Guillermo BID for additional calories and protein. Oral nutritional supplement will provide: 600 kcal and 25 gm protein daily. 2. Encourage pt to increase PO intake. RD awaiting call back from 10/31 2494 for diet rec.
--- NOTE | 2018-10-31 13:20 | NUR ---
FAMILY AT BEDSIDE AND STATES PATIENT HAS A FEVER. CHECKED BUT PATIENT IS AT 98.6 TEMPORAL. 98.3 AXILARY. PATIENT GIVEN NORCO FOR COMPLAITNS OF PAIN AND REASUSERED THE FAMILY THAT TYLENOL IS IN THE NORCO. WILL CONTINUE TO MONITOR FOR EFFECTIVENESSE
--- NOTE | 2018-10-31 17:28 | NUR ---
PATIENTS BLOOD SUGAR AT 141 AND WAS EXACTLY THE SAME EARLIER. BROUGHT IN SOME SUSHI AND WAS VERY HEALTHY IN APPEARANCE. PATIENTS IS ASSISTING THE PATIENT TO EAT. AT THIS TIME HE HAS NO COMPLAINTS OF PAIN.
[2018-10-31 18:23] VITALS: BP 145/52
--- NOTE | 2018-10-31 19:34 | NUR ---
PT HAS BEEN RECIEVED FROM THE DAY SHIFT RN, IS AT THE BEDSIDE, PT IS ALERT AND ORIENTED X3, NO SIGNS OF ACUTE DISTRESS NOTED, PT IV IS INTACT AND INFUSING WELL AT THIS TIME. SAFETY AND COMFORT MEASURES MAINTAINED, BED IN LOWEST POSITION, CALL LIGHT WITHIN REACH, WILL CONTINUE TO MONITOR AT THIS TIME.
[2018-10-31 20:51] VITALS: BP 139/53
--- NOTE | 2018-11-01 00:30 | NUR ---
PT RESTING IN BED WITH EYES CLOSED AT THIS TIME, NO DISTRESS NOTED. PT HAS BEEN CALM AND COOPERATIVE WITH CARE. SAFETY AND COMFORT MEASURES MAINTAINED, BED IN LOWEST POSITION, CALL LIGHT WITHIN REACH. WILL CONTINUE TO MONITOR AT THIS TIME.
--- NOTE | 2018-11-01 01:51 | NUR ---
PT IS RESTING IN BED WITH EYES CLOSED AT THIS TIME. NO DISTRESS NOTED, PT HAS BEEN CALM AND COOPERATIVE WITH CARE AT THIS TIME. SAFETY AND COMFORT MEASURES MAINTAINED, BED IN LOWEST POSITION, CALL LIGHT MITCH CALLES. WILL CONTINUE TO MONITOR AT THIS TIME.
[2018-11-01 05:11] VITALS: BP 148/54
--- NOTE | 2018-11-01 06:01 | NUR ---
PT HAS SLEPT IN LONG INTERVALS THROUGHOUT THE SHIFT. PT HAS BEEN CALM AND COOPERATVIE WITH CARE. NO CMOPLAINT OF PAIN AT THIS TIME. PT HAS COLOSTOMY BAG ON THE LT SIDE ABDOMEN. NO DISTRESS NOTED, LT SIDE FACIAL DROOP NOTED. LT SIDE WEAKNESS DUE TO HX OF CVA. SAFETY AND COMFORT MEASURES MAINTAINED, BED IN LOWEST POSITION, CALL LIGHT WITHIN REACH. WILL ENDORSE CONTINUITY OF CARE TO THE ONCOMING RN, WILL CONTINUE TO MONITOR AT THIS TIME.
--- NOTE | 2018-11-01 07:55 | NUR ---
RECEIVED PATIENT FROM PREVIOUS SHIFT AND PATIENT HAD JUST HAD HIS BLOOD DRAW. PATIENT CONTINUED ON BEDREST AND INCONTINENT. TOLERATED DIET AND NO INSULIN COVERAGE WAS GIVEN OVERNIGHT. 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
[2018-11-01 08:22] LABS: BASOPHIL % 0.8 % (0-2); PLATELET COUNT 209 x10^3mcL (130-400); RED CELL DISTRIBUTION WIDTH 25.8 % (11.5-14.5)
[2018-11-01 08:24] LABS: CALCIUM 8.4 mg/dL (8.5-10.1); CARBON DIOXIDE 22.8 mmol/L (21-32); CHLORIDE SERUM 104 mmol/L (98-107); CREATININE SERUM 0.5 mg/dL (0.7-1.3); GLUCOSE SERUM 143 mg/dL (74-106); MAGNESIUM 1.5 mg/dL (1.8-2.4); POTASSIUM SERUM 3.4 mmol/L (3.5-5.1); SODIUM SERUM 137 mmol/L (136-145)
[2018-11-01 09:39] VITALS: BP 155/54
--- NOTE | 2018-11-01 10:48 | NUR ---
GAVE NORCO FOR PAIN AND EFFECTIVE AT THIS TIME. PATIENT HAS BEEN CHANGED DUE TO INCONTINENCE AND IS COMFORTABLE AT THIS TIME.
--- NOTE | 2018-11-01 12:36 | NUR ---
SCREEN FOR LOW LEONOR SCALE: PT'S SKIN WITH INCONTINENT ASSOCIATE DERMATITIS TO SACRALCOCCYX AND BUTTOCKS AREAS, WILL APPLY Z-GUARD BID AND LEAVE IT OPEN TO AIR. PRIMARY RN NOTIFY. WILL CONTINUE ALL PRESSURE INJURY PREVENTION INTERVENTIONS -TURN AND REPOSITION PATIENT Q 2H -ASSESS AND MONITOR SKIN CONDITION DURING POSITION CHANGE -OFFLOAD BILATERAL HEELS BY PLACING PILLOWS UNDER CALVES AT ALL TIMES, UNLESS OTHERWISE CONTRAINDICATED -PRESSURE REDISTRIBUTION SURFACE THERAPY -KEEP SKIN CLEAN AND DRY AT ALL TIMES
--- NOTE | 2018-11-01 14:36 | NUR ---
PATEINT RECEIVED ORDERS FOR POSSIBLE DISCHARGE TO SNF TODAY. AWAITING WORD ON POSSIBLE PLACEMENT TODAY.
[2018-11-01 17:12] VITALS: BP 155/54
[2018-11-01 17:43] VITALS: BP 105/60
--- NOTE | 2018-11-01 20:30 | NUR ---
MARJORIE CAME IN TO TRANSPORT PT; GIVEN REPORT; PT LEFT WITH 2 TRANSPORTERS AND . PT A/A/O X 4, CALM, COOPERATIVE. NO RESPIRATORY DISTRESS, PAIN, OR DISCOMFORT NOTED.
[2018-11-01] MEDS ORDERED: VASCEPA1 GM PO (21:02)
== END 2018-11-01 20:56 | DRG 689 ==
LOC: ED 19:29 → MU 22:14
PROVIDERS: Emergency Medicine; ADMIT Internal Medicine
DX: N39.0 Urinary tract infection, site not specified (principal); N17.0 Acute kidney failure with tubular necrosis; I69.354 Hemiplegia and hemiparesis following cerebral infarction affecting left non-dominant side; Z68.1 Body mass index [BMI] 19.9 or less, adult; E87.1 Hypo-osmolality and hyponatremia; E44.0 Moderate protein-calorie malnutrition; E11.9 Type 2 diabetes mellitus without complications; I16.0 Hypertensive urgency; E86.0 Dehydration; E78.5 Hyperlipidemia, unspecified; R80.9 Proteinuria, unspecified; E83.39 Other disorders of phosphorus metabolism; E83.42 Hypomagnesemia; K21.9 Gastro-esophageal reflux disease without esophagitis; N40.0 Benign prostatic hyperplasia without lower urinary tract symptoms; Z93.3 Colostomy status; Z92.3 Personal history of irradiation; Z87.891 Personal history of nicotine dependence; Z92.21 Personal history of antineoplastic chemotherapy; Z79.84 Long term (current) use of oral hypoglycemic drugs; Z85.040 Personal history of malignant carcinoid tumor of rectum
CPT/HCPCS: 82962; 83880; 97110-GP; 97530-GP; J0696; J7030; Q0092

== ENCOUNTER 2019-01-07 16:49 | Inpatient (IN) | payer OTHER ==
[~2019-01-07] VITALS: Ht 172.7 cm; Wt 57.7 kg
[~2019-01-07 16:49] MED LIST changes: +AMBIEN5 MG PO; +METFORMIN ER500 M1 PO
[2019-01-07 17:06] VITALS: Ht 172.7 cm; Wt 57.7 kg
[2019-01-07 17:14] LABS: BASOPHIL % 0.8 % (0-2); PLATELET COUNT 261 x10^3mcL (130-400)
[2019-01-07 17:15] LABS: RED CELL DISTRIBUTION WIDTH 17.1 % (11.5-14.5)
[2019-01-07 17:27] LABS: CARBON DIOXIDE 24.1 mmol/L (21-32); CHLORIDE SERUM 100 mmol/L (98-107); CREATININE SERUM 0.9 mg/dL (0.7-1.3); GLUCOSE SERUM 196 mg/dL (74-106); POTASSIUM SERUM 4.4 mmol/L (3.5-5.1); SODIUM SERUM 135 mmol/L (136-145)
[2019-01-07 17:32] LABS: ALKALINE PHOSPHATASE 58 U/L (46-116); ALT/SGPT 19 U/L (16-63); AST/SGOT 41 U/L (15-37); BILIRUBIN TOTAL 0.33 mg/dL (0.20-1.00); TOTAL PROTEIN, SERUM 7.2 g/dL (6.4-8.2)
[2019-01-07 17:33] LABS: ALBUMIN 3.1 g/dL (3.4-5.0)
[2019-01-07 18:55] LABS: microscopic required? NO
[2019-01-07 19:28] LABS: urine erythrocyte NEGATIVE (NEGATIVE)
[2019-01-07] MEDS ORDERED: KAPVAY0.1 MG (19:30)
[2019-01-07 20:27] LABS: AMPHETAMINE QUAL UR NONE DETECTED (See below)
[2019-01-07 20:27] LABS: MAGNESIUM 1.8 mg/dL (1.8-2.4); PHOSPHOROUS 3.7 mg/dL (2.5-4.9)
[2019-01-07 21:03] VITALS: BP 118/40
[2019-01-08 05:13] VITALS: BP 121/48
[2019-01-08 06:04] LABS: BASOPHIL % 0.1 % (0-2); PLATELET COUNT 231 x10^3mcL (130-400)
[2019-01-08 06:31] LABS: CALCIUM 8.4 mg/dL (8.5-10.1); CARBON DIOXIDE 20.8 mmol/L (21-32); CHLORIDE SERUM 104 mmol/L (98-107); CREATININE SERUM 0.6 mg/dL (0.7-1.3); GLUCOSE SERUM 182 mg/dL (74-106); MAGNESIUM 1.8 mg/dL (1.8-2.4); PHOSPHOROUS 3.1 mg/dL (2.5-4.9); POTASSIUM SERUM 3.8 mmol/L (3.5-5.1); SODIUM SERUM 135 mmol/L (136-145)
[2019-01-08 06:39] LABS: RED CELL DISTRIBUTION WIDTH 16.5 % (11.5-14.5)
[2019-01-08 08:04] VITALS: BP 128/46
[2019-01-08 12:14] VITALS: BP 134/56
[2019-01-08 16:23] VITALS: BP 137/42
[2019-01-08 21:48] VITALS: BP 142/48
[2019-01-08 23:57] VITALS: BP 126/35
[2019-01-09 06:07] VITALS: BP 135/54
[2019-01-09 06:45] LABS: BASOPHIL % 0.5 % (0-2); PLATELET COUNT 177 x10^3mcL (130-400)
[2019-01-09 06:53] LABS: RED CELL DISTRIBUTION WIDTH 15.7 % (11.5-14.5)
[2019-01-09 07:03] LABS: CALCIUM 8.7 mg/dL (8.5-10.1); CARBON DIOXIDE 23.6 mmol/L (21-32); CHLORIDE SERUM 108 mmol/L (98-107); CREATININE SERUM 0.5 mg/dL (0.7-1.3); GLUCOSE SERUM 127 mg/dL (74-106); MAGNESIUM 1.5 mg/dL (1.8-2.4); PHOSPHOROUS 2.8 mg/dL (2.5-4.9); POTASSIUM SERUM 3.7 mmol/L (3.5-5.1); SODIUM SERUM 139 mmol/L (136-145)
[2019-01-09 08:40] VITALS: BP 160/58
[2019-01-09 12:20] VITALS: BP 142/41
[2019-01-09 16:30] VITALS: BP 148/51
[2019-01-09 20:52] VITALS: BP 128/43
[2019-01-10 05:51] VITALS: BP 177/54
[2019-01-10 06:43] LABS: CALCIUM 8.9 mg/dL (8.5-10.1); CARBON DIOXIDE 23.2 mmol/L (21-32); CHLORIDE SERUM 109 mmol/L (98-107); CREATININE SERUM 0.5 mg/dL (0.7-1.3); GLUCOSE SERUM 121 mg/dL (74-106); MAGNESIUM 1.5 mg/dL (1.8-2.4); POTASSIUM SERUM 3.9 mmol/L (3.5-5.1); SODIUM SERUM 140 mmol/L (136-145)
[2019-01-10 07:27] LABS: BASOPHIL % 0.5 % (0-2); PLATELET COUNT 185 x10^3mcL (130-400); RED CELL DISTRIBUTION WIDTH 15.6 % (11.5-14.5)
[2019-01-10 08:20] VITALS: BP 139/53
[2019-01-10] MEDS ORDERED: NOVAPLUS VANCO125 MG PO (09:50)
[2019-01-10 12:25] VITALS: BP 145/50
[2019-01-10 13:49] VITALS: BP 145/50
[2019-01-10 16:50] VITALS: BP 139/46
== END 2019-01-10 18:46 | DRG 371 ==
LOC: ED 16:49 → DU 19:48
PROVIDERS: Internal Medicine; Specialist; ADMIT General Practice
DX: A04.72 Enterocolitis due to Clostridium difficile, not specified as recurrent (principal); N17.0 Acute kidney failure with tubular necrosis; D62 Acute posthemorrhagic anemia; E87.1 Hypo-osmolality and hyponatremia; E44.0 Moderate protein-calorie malnutrition; I69.354 Hemiplegia and hemiparesis following cerebral infarction affecting left non-dominant side; Z68.1 Body mass index [BMI] 19.9 or less, adult; E11.21 Type 2 diabetes mellitus with diabetic nephropathy; E86.0 Dehydration; I10 Essential (primary) hypertension; D50.9 Iron deficiency anemia, unspecified; N40.0 Benign prostatic hyperplasia without lower urinary tract symptoms; E78.00 Pure hypercholesterolemia, unspecified; K21.9 Gastro-esophageal reflux disease without esophagitis; Z93.3 Colostomy status; Z92.3 Personal history of irradiation; Z92.21 Personal history of antineoplastic chemotherapy; Z79.84 Long term (current) use of oral hypoglycemic drugs; Z85.038 Personal history of other malignant neoplasm of large intestine
CPT/HCPCS: 36600; 82962; 83880; 87046; 87046-59; 87804; 97110-GP; 97530-GP; C9113; J7030

== ENCOUNTER 2019-05-06 14:46 | Inpatient (IN) | payer OTHER ==
[~2019-05-06] VITALS: Ht 170.2 cm; Wt 65.3 kg
[~2019-05-06 14:46] MED LIST changes: +ARTOS OU; +AZASITE2.5 ML OP; +BG MC; +COL100UDC PO; +CREON1 EC1 PO; +DEXPF IV; +DICYCLOMINE10 M1 PO; +ECO81 PO; +HEP5I SC; +HUMULIN R100 U/1 M1 SC; +IPRATROPIUM BROM3 M2 HHN; +KAPVAY0.1 MG; +LIPI10 PO; +METOPROLOL SUCC50 M2 PO; +MOR2I IV; +MYL80 CH; +NOR10T PO; +NOVAPLUS VANCO125 MG PO; +PAN PO; +PENTOXIFYLLINE400 MG PO; +PHE25I IV; +PROT40I IV; +REG10I IV; +TPN PER PHARMACY MC; +ZOFI IV; +ZOS3PM IV; +[UNRECOGNIZED DRUG - CODE] PO
--- NOTE | 2019-05-06 14:56 | NUR ---
PT BIB [facility] C/C CP PER MEDIC HH NURSE STS O2 LEVEL AT HOME WAS 90% RA MEDIC STS ON THERE CHECK 95% PT IN NO DISCOMFORT STS CP OFF AND ON X MONTHS DENIES PAIN AT THIS TIME AWAITING FOR DR PERLITA CARDENAS
--- NOTE | 2019-05-06 15:09 | NUR ---
DR DUKES AT BEDSIDE TO THERESA
[2019-05-06 15:34] LABS: BASOPHIL % 0.8 % (0-2); PLATELET COUNT 276 x10^3mcL (130-400)
[2019-05-06 15:40] LABS: CALCIUM 9.3 mg/dL (8.5-10.1); CARBON DIOXIDE 20.1 mmol/L (21-32); CHLORIDE SERUM 108 mmol/L (98-107); CREATININE SERUM 0.6 mg/dL (0.7-1.3); GLUCOSE SERUM 182 mg/dL (74-106); POTASSIUM SERUM 4.3 mmol/L (3.5-5.1); SODIUM SERUM 140 mmol/L (136-145)
[2019-05-06 15:47] LABS: ALKALINE PHOSPHATASE 60 U/L (46-116); ALT/SGPT 10 U/L (16-63); AST/SGOT 21 U/L (15-37); BILIRUBIN TOTAL 0.63 mg/dL (0.20-1.00)
[2019-05-06 15:49] LABS: ALBUMIN 2.7 g/dL (3.4-5.0); TOTAL PROTEIN, SERUM 6.1 g/dL (6.4-8.2)
--- NOTE | 2019-05-06 16:23 | NUR ---
PLEASE ENTER FULL NAMES OF BACK ORDER CLERK/RN Patient data collected by (BACK ORDER CLERK):NENITA AGARWAL Assessment reviewed and completed by (RN):VINNIE SANCHEZ
[2019-05-06] MEDS ORDERED: FLO4 PO (16:35)
[2019-05-06] MEDS ORDERED: PENTOXIFYL XR400 M1 PO (16:35)
[2019-05-06] MEDS ORDERED: NEU300 PO (16:35)
[2019-05-06] MEDS ORDERED: NEXIUM40 MG PO (16:35)
[2019-05-06] MEDS ORDERED: RESTASIS0.051 OU (16:36)
[2019-05-06] MEDS ORDERED: VASCEPA1 GM PO (16:36)
[2019-05-06] MEDS ORDERED: ZOLOFT50 MG PO (16:36)
[2019-05-06] MEDS ORDERED: ZESTRIL5 MG PO (16:37)
[2019-05-06] MEDS ORDERED: METFORMIN500 M1 (16:37)
[2019-05-06] MEDS ORDERED: NOR5 PO (16:37)
[2019-05-06] MEDS ORDERED: AMARYL4 MG PO (16:38)
[2019-05-06] MEDS ORDERED: FERROUS SULFAT325 M2 PO (16:38)
[2019-05-06] MEDS ORDERED: TOPROL XL25 MG PO (16:38)
--- NOTE | 2019-05-06 17:02 | NUR ---
PT ADMIT TO TELE ROOM 222B GAVE REPORT TO ORLANDO
[2019-05-06 17:54] LABS: CHOLESTEROL/HDL RATIO 6.2; MAGNESIUM 1.9 mg/dL (1.8-2.4); PHOSPHOROUS 2.9 mg/dL (2.5-4.9)
--- NOTE | 2019-05-06 18:00 | NUR ---
RECEIVED PT FROM ER, PT ADMIT FOR ANEMIA, CHEST PAIN, PT IS A/O X4, VERBAL RESPONSIVE, LEFT FAICAL DROOP AND LEFT SIDE WEAKNESS NOTED DUE TO HX CVA, LUNG SOUND CLEAR BILATERAL,NO COUGH, NO SOB, PO2 96% IN ROOM AIR, PT IS ON TELE 23, NSR, DENY ANY CHEST PAIN OR DISCOMFRT AT THIS MOMENT. BOWEL SOUND PRESENT ALL 4 QUADRANTS, COLOSTOMY BAG AT LEFT SIDE, PEDAL PULSE PRESENT BOTH FEET, NO EDEMA, IV AT LEFT WRIST, NO LEAKING, NO INFILTRAITON. SKIN IS INTACT. ALL ADLS ASSIST. ALL NEED MET, CALL LIGHT IN REACH, WILL CONTINUE TO MONITOR.
[2019-05-06 18:17] VITALS: BP 110/42
[2019-05-06] MEDS ORDERED: KEN025C TOP (18:44)
[2019-05-06] MEDS ORDERED: TRIPLE ANTIBIOT28 GM TP (18:45)
[2019-05-06] MEDS ORDERED: SOLARCAINE ALO TP (18:46)
--- NOTE | 2019-05-06 18:58 | NUR ---
PATIENT RESTING IN BED, NO ACUTE CHANGES NOTED THROUGH OUT SHIFT, PATIENT IS STABLE. PATIENT DENIES PAIN AT THIS TIME. NS IV INFUSING TO RIGHT WRIST AT 70 ML/HR, IV SITE CDI & PATENT, NO S/S OF INFILTRATION. CALL LIGHT WITHIN REACH, BED IN LOW POSITION. WILL ENDORSE REPORT TO NIGHT RN.
--- NOTE | 2019-05-06 19:35 | NUR ---
PT RECIEVED AWAKE ALERT ASND ORIENTED TO PERSON PALCE AND TIME,REG RESP NO SOB LIGHT SIDED WEAKNESS AND DROOP,IV INFUSING WELL WITH THE SITE PATENT AND INTACT,PT SAYS WANT SOMETHING TO EAT PER AM NURSE PAGE TO THE AM DOCTOR FOR ORDERS BUT NO RESPONSE.HOB,IV INFUSING WELL WITH THE SITE PATENT AMND INTACT PT ON TELE MONITOR AND IN NSR NO ECTOPY OR CHEST PAIN AT THIS TIME,KEPT CLEAN AND DRY TO TOUCH,CALL LIGHT EASY REACHED,WILL CONTINUE TO MONITOR.
[2019-05-06 21:11] LABS: UA SPECIFIC GRAVITY 1.015 (1.005-1.035); microscopic required? YES; urine erythrocyte 1+ (NEGATIVE)
[2019-05-06 21:18] LABS: AMPHETAMINE QUAL UR NONE DETECTED (See below)
--- NOTE | 2019-05-06 23:59 | NUR ---
PT RESTING AT THIS TIME,WILL CONTINUE TO MONITOR.
[2019-05-07 05:53] VITALS: BP 117/46
--- NOTE | 2019-05-07 06:17 | NUR ---
PT HAD A RESTING NIGHT NO CHANGE AT THIS TIME,WILL CONTINUE TO MONITOR.
--- NOTE | 2019-05-07 07:20 | NUR ---
RECEIVED PT. IN BED A/A/O X3. NO SOB, NO N/V NOTED. PT. DENIES ANY PAIN AT THIS TIME. NS RUNNING AT 70 CC/HR VIA IV SITE AT R HAND. COLOSTOMY NOTED TO LUQ OF ABDOMEN. SOFT, YELLOW STOOL NOTED IN COLOSTOMY. SPOUSE AT BEDSIDE. BED IN LOW POS., CALL LIGHT WITHIN REACH. SIDE RAILS UP X3.
[2019-05-07 07:21] LABS: BASOPHIL % 0.4 % (0-2); PLATELET COUNT 292 x10^3mcL (130-400)
[2019-05-07 07:37] LABS: CALCIUM 9.1 mg/dL (8.5-10.1); CARBON DIOXIDE 20.6 mmol/L (21-32); CHLORIDE SERUM 111 mmol/L (98-107); CREATININE SERUM 0.7 mg/dL (0.7-1.3); GLUCOSE SERUM 120 mg/dL (74-106); MAGNESIUM 1.9 mg/dL (1.8-2.4); PHOSPHOROUS 2.8 mg/dL (2.5-4.9); POTASSIUM SERUM 4.2 mmol/L (3.5-5.1); SODIUM SERUM 144 mmol/L (136-145)
[2019-05-07 09:02] LABS: RED CELL DISTRIBUTION WIDTH 20.6 % (11.5-14.5)
[2019-05-07 10:25] VITALS: BP 123/45
[2019-05-07 12:34] VITALS: BP 137/53
--- NOTE | 2019-05-07 12:44 | NUR ---
BLADDER SCAN PERFORMED. URINE VOLUME= 219 ML.
--- NOTE | 2019-05-07 16:38 | NUR ---
DR. JEAN MADE AWARE THAT BLADDER SCAN ONLY SHOWED ABOUT 200ML OF URINE IN BLADDER. NO FURTHER ORDERS AT THIS TIME.
--- NOTE | 2019-05-07 16:50 | NUR ---
REMAINS IN STABLE CONDITION AT THIS TIME. WILL CONTINUE TO MONITOR.
[2019-05-07 17:48] VITALS: BP 119/46
--- NOTE | 2019-05-07 20:14 | NUR ---
PT RECIEVED AAO REG RESP NO SOB V/S STABLE, AT THE BEDSIDE,IV INFUSING WELL WITH THE SITE PATENT AND INTACT,PT WITH LT SIDE WEAKNEES AND LT EYE DROOP,PT HAS COLOSTOMY TO THE RT SIDE.NO PAIN REPORTED AT THIS TIME,CALL LIGHT EASY REACHED AND WILL CONTINUE TO MONITOR.
[2019-05-07 21:00] VITALS: BP 133/57
--- NOTE | 2019-05-07 22:11 | NUR ---
PT SLEEPING AT THIS TIME,WILL CONTINUE TO MONITOR.
--- NOTE | 2019-05-08 02:03 | NUR ---
PT SLEEPING COMFORTABLY AT THIS TIME,WILL CONTINUE TO MONITOR.
[2019-05-08 06:16] VITALS: BP 124/57
[2019-05-08 06:21] LABS: BASOPHIL % 0.3 % (0-2); PLATELET COUNT 303 x10^3mcL (130-400)
[2019-05-08 06:25] LABS: RED CELL DISTRIBUTION WIDTH 21.6 % (11.5-14.5)
[2019-05-08 06:35] LABS: ALKALINE PHOSPHATASE 51 U/L (46-116); ALT/SGPT 17 U/L (16-63); AST/SGOT 28 U/L (15-37); BILIRUBIN TOTAL 0.7 mg/dL (0.20-1.00); CALCIUM 9.2 mg/dL (8.5-10.1); CARBON DIOXIDE 27.5 mmol/L (21-32); CHLORIDE SERUM 109 mmol/L (98-107); CREATININE SERUM 0.7 mg/dL (0.7-1.3); GLUCOSE SERUM 109 mg/dL (74-106); MAGNESIUM 1.7 mg/dL (1.8-2.4); POTASSIUM SERUM 4.2 mmol/L (3.5-5.1); SODIUM SERUM 142 mmol/L (136-145); TOTAL PROTEIN, SERUM 6.2 g/dL (6.4-8.2)
[2019-05-08 06:57] LABS: ALBUMIN 2.7 g/dL (3.4-5.0)
--- NOTE | 2019-05-08 07:15 | NUR ---
RECEIVED PT FROM NIGHT NURSE. PT IS LAYING DOWN IN BED RESTING. RESPIRATIONS EVEN AND UNLABORED ON ROOM AIR. IV SITE PATENT WITH NO SIGNS OF ERYTHEMA OR SWELLING WITH IV FLUIDS INFUSING. TELE MONITOR PRESENT. FAMILY MEMBER AT BEDSIDE. PT LOOKS TO BE IN NO ACUTE DISTRESS AT THIS TIME AND DENIES ANY PAIN. COLOSTOMY BAG PRESENT TO LUQ. BED IN LOWEST POSITION, CALL LIGHT WITHIN REACH. WILL CONTINUE TO MONITOR.
[2019-05-08 09:00] LABS: rbc morphology (normal/abnorm) ABNORMAL (NORMAL)
[2019-05-08 09:44] VITALS: BP 145/75
--- NOTE | 2019-05-08 10:15 | NUR ---
CHANGED PT COLOSTOMY BAG. EMPTIED DARK GREEN FORMED STOOL FROM BAG. PT LOOKS TO BE IN NO ACUTE DISTRESS.
[2019-05-08 13:12] VITALS: BP 157/56
[2019-05-08 13:19] VITALS: BP 157/56
[2019-05-08 16:42] VITALS: BP 128/50
--- NOTE | 2019-05-08 17:18 | NUR ---
PT AWAKE, ALERT AND ORIENTED AT TIME OF DISCHARGE AND LOOKED TO BE IN NO ACUTE DISTRESS AND NO COMPLAINTS OF PAIN. PT DISCHARGED HOME AND WENT TO THE LOBBY VIA WHEELCHAIR ACCOMPANIED BY NURSE AND FAMILY MEMBER WITH BELONGINGS IN HAND. PROVIDED PT AND FAMILY MEMBER WITH HOSPTIAL SUMMARY AND EDUCATION. PT AND FAMILY MEMBER VERBALIZED UNDERSTANDING OF INFORMATION. INFORMED PT TO MAKE A FOLLOW UP APPOINTMENT WITHIN 1 WEEK OF DISCHARGE. PT AND FAMILY MEMBER VERBALIZED UNDERSTANDING OF THIS INFORMATION. IV REMOVED AND CATHETER FULLY INTACT. ALL QUESTIONS AND CONCERNS ADDRESSED.
[2019-05-13 10:01] VITALS: Ht 170.2 cm; Wt 65.3 kg
== END 2019-05-08 17:11 | disposition home health service (06) | DRG 205 ==
LOC: ED 14:46 → DU 16:39 → MU 05-08 14:28
PROVIDERS: Emergency Medicine; Internal Medicine; ADMIT Internal Medicine
DX: M94.0 Chondrocostal junction syndrome [Tietze] (principal); E43 Unspecified severe protein-calorie malnutrition; N17.0 Acute kidney failure with tubular necrosis; I69.354 Hemiplegia and hemiparesis following cerebral infarction affecting left non-dominant side; I69.392 Facial weakness following cerebral infarction; K21.9 Gastro-esophageal reflux disease without esophagitis; E11.9 Type 2 diabetes mellitus without complications; T66.XXXS Radiation sickness, unspecified, sequela; I10 Essential (primary) hypertension; I35.0 Nonrheumatic aortic (valve) stenosis; N40.0 Benign prostatic hyperplasia without lower urinary tract symptoms; E78.1 Pure hyperglyceridemia; D64.9 Anemia, unspecified; F32.9 Major depressive disorder, single episode, unspecified; Z68.20 Body mass index [BMI] 20.0-20.9, adult; Z87.891 Personal history of nicotine dependence; Z85.048 Personal history of other malignant neoplasm of rectum, rectosigmoid junction, and anus; Z90.49 Acquired absence of other specified parts of digestive tract; Z93.3 Colostomy status; Z92.21 Personal history of antineoplastic chemotherapy; Z79.84 Long term (current) use of oral hypoglycemic drugs; Z79.02 Long term (current) use of antithrombotics/antiplatelets; Y84.2 Radiological procedure and radiotherapy as the cause of abnormal reaction of the patient, or of later complication, without mention of misadventure at the time of the procedure
CPT/HCPCS: 82962; 83880; 85378; 97530-GP; G0378; J1815; J7030

== ENCOUNTER 2019-06-12 17:38 | Inpatient (IN) | payer OTHER ==
[~2019-06-12] VITALS: Ht 170.2 cm; Wt 59.0 kg
[~2019-06-12 17:38] MED LIST changes: +KEN025C TOP; +METFORMIN500 M1; +RESTASIS0.051 OU; +SOLARCAINE ALO TP; +TRIPLE ANTIBIOT28 GM TP
[2019-06-12 17:46] VITALS: Ht 170.2 cm; Wt 59.0 kg
--- NOTE | 2019-06-12 18:33 | NUR ---
BRINGS IN VIA W/C FROM HOME TO ER WITH C/O HEAMTURIA X MANY MONTHS AND DYSURIA X 2 WEEKS, PROGRESSIVELY GETTING WORSE IN THE LAST FEW DAYS.ABD SOFT/DISTENDED, COLOSTOMY BAG NOTED TO LEFT ABD. NO GROSS HEMATURIA NOTED. DENIES ANY N/V/D. DENIES ABD PAIN. RESP EVEN AND UNLABORED, ON RA@98%.
--- NOTE | 2019-06-12 18:49 | NUR ---
IN AND OUT CATH DONE, PT TOLERATED WELL.
[2019-06-12 20:08] LABS: BASOPHIL % 0.4 % (0-2); PLATELET COUNT 351 x10^3mcL (130-400)
[2019-06-12 20:10] LABS: RED CELL DISTRIBUTION WIDTH 15.6 % (11.5-14.5)
[2019-06-12 20:14] LABS: UA SPECIFIC GRAVITY 1.025 (1.005-1.035); microscopic required? YES; urine erythrocyte NEGATIVE (NEGATIVE)
[2019-06-12 20:23] LABS: CALCIUM 8.3 mg/dL (8.5-10.1); CARBON DIOXIDE 19.9 mmol/L (21-32); CHLORIDE SERUM 107 mmol/L (98-107); CREATININE SERUM 0.9 mg/dL (0.7-1.3); GLUCOSE SERUM 228 mg/dL (74-106); POTASSIUM SERUM 3.9 mmol/L (3.5-5.1); SODIUM SERUM 139 mmol/L (136-145)
[2019-06-12 20:28] LABS: ALKALINE PHOSPHATASE 58 U/L (46-116); ALT/SGPT 13 U/L (16-63); AMYLASE 53 U/L (25-115); AST/SGOT 23 U/L (15-37); BILIRUBIN TOTAL 0.48 mg/dL (0.20-1.00); LIPASE 342 IU/L (73-393)
[2019-06-12 20:30] LABS: ALBUMIN 2.3 g/dL (3.4-5.0); TOTAL PROTEIN, SERUM 5.6 g/dL (6.4-8.2)
--- NOTE | 2019-06-12 20:41 | NUR ---
PT STATES THAT HE IS STILL EXPERIENCING 6/10 LOWER ABDOMEN/SUPERPUBIC PAIN. MD MADE AWARE. VITAL SIGNS STABLE. RESPIRATIONS EVEN AND UNLABORED. NO ACUTE DISTRESS NOTED.
--- NOTE | 2019-06-12 22:09 | NUR ---
PT MEDICATED PER MD ORDER SEE EMAR. VITAL SIGNS STABLE. RESPIRATIONS EVEN AND UNLABORED. NO ACUTE DISTRESS NOTED.
[2019-06-12] MEDS ORDERED: NOR5 PO (22:46)
[2019-06-12] MEDS ORDERED: ZESTRIL5 MG PO (22:46)
[2019-06-12] MEDS ORDERED: AMARYL4 MG PO (22:47)
[2019-06-12] MEDS ORDERED: TOPROL XL25 MG PO (22:47)
--- NOTE | 2019-06-12 23:38 | NUR ---
REPORT GIVEN TO LYNN ON MED/GOGO FOR CONTINUATION OF CARE.
[2019-06-12 23:44] LABS: PHOSPHOROUS 3.2 mg/dL (2.5-4.9)
--- NOTE | 2019-06-13 00:03 | NUR ---
RECEIVED PT VIA [facility] FROM E/D, ACCOMPANIED BY 2 TRANSPORTERS AND PT'S , MEGAN RUIZ. PT A/A/O X 4, CALM, COOPERATIVE; WEARS GLASSES (NOT W/ PT). DENIES CHEST PAIN OR DISCOMFORT AT THIS TIME. NO ACUTE RESPIRATORY DISTRESS NOTED. ABD SOFT, ROUND, TENDERNESS UPON PALPATION TO BLQ (C/O INTERMITTENT CRAMPING 8/10, MODERATELY RELIEVED BY PAIN MEDICATIONS), NORMOACTIVE BOWEL SOUNDS TO BUQ, HYPOACTIVE BOWEL SOUNDS TO BLQ, COLOSTOMY TO LLQ W/ SOFT FECAL DISCHARGE; REPORTS POOR PO INTAKE. C/O HEMATURIA AND DYSURIA. L HEMIPARESIS, USES W/C (@ BEDSIDE), ABLE TO USE FWW (FEW STEPS ONLY); FALL RISK PROTOCOL IN PLACE. IV SITE 24G, CDI. ORIENTED PT AND TO ROOM, BED CONTROLS, CALL LIGHT SYSTEM. SIDE RAILS UP X 2, BED IN LOW POSITION. WILL ENDORSE TO HANNA DUTTA.
[2019-06-13 00:24] VITALS: BP 119/52
--- NOTE | 2019-06-13 00:29 | NUR ---
C/O ABDOMINAL PAIN AT SCALE OF 6/10, NORCO 1 TAB PO GIVEN PRESCRIBED. WILL CONTINUE TO MONITOR. AT BEDSIDE.
[2019-06-13 00:56] LABS: AMPHETAMINE QUAL UR NONE DETECTED (See below)
--- NOTE | 2019-06-13 05:10 | NUR ---
C/O ABDOMINAL PAIN NORCO 1 TAB PO GIVEN. COLOSTOMY BAG EMPTIED WITH AROUND 250ML STOOL. ALL NEEDS ATTENDED. KEPT ON ISOLATION PRECAUTION.
[2019-06-13 05:36] VITALS: BP 109/50
[2019-06-13 06:32] LABS: BASOPHIL % 0.7 % (0-2); PLATELET COUNT 341 x10^3mcL (130-400)
[2019-06-13 06:38] LABS: RED CELL DISTRIBUTION WIDTH 15.7 % (11.5-14.5)
[2019-06-13 06:48] LABS: CALCIUM 8.5 mg/dL (8.5-10.1); CARBON DIOXIDE 20.9 mmol/L (21-32); CHLORIDE SERUM 111 mmol/L (98-107); CREATININE SERUM 0.8 mg/dL (0.7-1.3); GLUCOSE SERUM 108 mg/dL (74-106); PHOSPHOROUS 3.3 mg/dL (2.5-4.9); SODIUM SERUM 142 mmol/L (136-145)
--- NOTE | 2019-06-13 07:16 | NUR ---
RECEIVED REPORT FROM TRA FERREIRA. PATIENT RESTING COMFORTABLY IN BED WITH AT BEDSIDE. IV TO LEFT HAND IS PATENT AND INFUSING NS @ 100 ML/HR. NO REDNESS OR PAIN. PT ON ROOM AIR. NO DISTRESS NOTED. ALL QUESTIONS AND CONCERNS ADDRESSED.
--- NOTE | 2019-06-13 08:35 | NUR ---
SCREEN FOR LOW LEONOR SCALE AT RISK PRESSURE ULCER INJURY PREVENTION INTERVENTIONS: -TURN AND REPOSITION PATIENT Q 2H OFFLOAD LEFT AND RIGHT HIPS -ASSESS AND MONITOR SKIN CONDITION DURING POSITION CHANGE -OFFLOAD BILATERAL HEELS BY PLACING PILLOWS UNDER CALVES AT ALL TIMES, UNLESS OTHERWISE CONTRAINDICATED -PRESSURE REDISTRIBUTION SURFACE THERAPY -KEEP SKIN CLEAN AND DRY AT ALL TIMES.
--- NOTE | 2019-06-13 09:00 | NUR ---
DR GARCÍA IN TO SEE AND ASSESS PATIENT.
[2019-06-13 09:45] VITALS: BP 104/51
--- NOTE | 2019-06-13 10:24 | NUR ---
ROUNDS: DR SCHUSTER, RESIDENTS, PRIMARY RN, BELT SANDER, AND PATIENT'S AT BEDSIDE. DISCUSSED HISTORY OF PRESENT ILLNESS AND PLAN OF CARE TO CONTINUE ANTIBIOTICS, MONITOR FOOD TOLERATION, PROTECT SKIN INTEGRITY, AND ADJUST BP MEDICATION. PATIENT AND VERBALIZED UNDERSTANDING AND ALL QUESTIONS AND CONCERNS WERE ADDRESSED.
--- NOTE | 2019-06-13 12:20 | NUR ---
IN TO SEE PATIENT AND ADMINISTER MEDICATION (SEE eMAR). PATIENT RESTING COMFORTABLY IN BED WITH ALL NEEDS MET. PROPHYLACTIC OPTIFOAM APPLIED TO LT HEEL, HEEL FLOATING BOOTS APPLIED, AIR MATTRESS APPLIED.
[2019-06-13 16:50] VITALS: BP 115/46
--- NOTE | 2019-06-13 16:55 | NUR ---
DR ORTA IN TO SEE AND ASSESS PATIENT. DISCUSSED HISTORY OF PRESENT ILLNESS. PT IS TOLERATING FOODS AND COLOSTOMY IS DRAINING WELL. DR INFORMED THAT SHE DOES NOT RECOMMEND SURGERY AT THIS TIME. PT VERBALIZED UNDERSTANDING AND HAD NO QUESTIONS.
--- NOTE | 2019-06-13 19:49 | NUR ---
REPORT GIVEN TO TRA FERREIRA. PATIENT RESTING COMFORTABLY IN BED WITH AT BEDSIDE. ALL NEEDS MET. ALL QUESTIONS AND CONCERNS ADDRESSED. ALL CARES ENDORSED.
--- NOTE | 2019-06-13 20:08 | NUR ---
RECEIVED PATIENT IN BED AWAKE, ALERT AND ORIENTED WITH NO SIGN OF ACUTE RESPIRATORY DISTRESS. BREATHING EASY AND NONLABOR SATTING AT 99% RA. NONPITTING EDEMA NOTED TO BLE. COLOSTOMY LEFT LOER QUADRANT WITH SMALL AMOUNT OF SOFT STOOL NOTED. PATIENT ON AIR MATTRESS. IV TO LH INTACT AND INFUSING WELL. WILL CONTINUE TO MONITOR. CALL LIGHT WITHIN REACH, AT BEDSIDE.
[2019-06-13 21:12] VITALS: BP 137/63
--- NOTE | 2019-06-13 21:40 | NUR ---
C/O ABDOMINAL PAIN AT SCALE OF 7/10 PER PATIENT, NORCO 1 TAB PO GIVEN PRESCRIBED. WILL CONTINUE TO MONITOR.
--- NOTE | 2019-06-13 23:06 | NUR ---
RELIEF NOTED PER PATIENT AFTER PAIN MEDS WAS GIVEN. WILL CONTINUE TO MONITOR.
--- NOTE | 2019-06-14 01:09 | NUR ---
APPEARS SLEEPING THIS TIME BEATHING EASY AND NONLABOR. AT BEDSIDE.
--- NOTE | 2019-06-14 05:09 | NUR ---
SLEPT AT LONG INTERVALS, C/O ABDOMINAL PAIN X2 THE ENTIRE SHIFT AND MEDICATED PRESCRIBED. ALL NEEDS ATTENDED. KEPT ON ISOLATION PRECAUTION.
[2019-06-14 05:11] VITALS: BP 136/49
[2019-06-14 06:22] LABS: BASOPHIL % 0.8 % (0-2); PLATELET COUNT 314 x10^3mcL (130-400)
[2019-06-14 07:02] LABS: RED CELL DISTRIBUTION WIDTH 15.6 % (11.5-14.5)
[2019-06-14 07:09] LABS: ALKALINE PHOSPHATASE 40 U/L (46-116); ALT/SGPT 12 U/L (16-63); AST/SGOT 29 U/L (15-37); BILIRUBIN DIRECT 0.24 mg/dL (0.0-0.2); BILIRUBIN TOTAL 0.44 mg/dL (0.20-1.00); CALCIUM 8.9 mg/dL (8.5-10.1); CARBON DIOXIDE 22.1 mmol/L (21-32); CHLORIDE SERUM 112 mmol/L (98-107); CREATININE SERUM 0.6 mg/dL (0.7-1.3); GLUCOSE SERUM 131 mg/dL (74-106); MAGNESIUM 1.8 mg/dL (1.8-2.4); PHOSPHOROUS 3.1 mg/dL (2.5-4.9); SODIUM SERUM 142 mmol/L (136-145)
[2019-06-14 07:20] LABS: ALBUMIN 2.1 g/dL (3.4-5.0); TOTAL PROTEIN, SERUM 5.1 g/dL (6.4-8.2)
--- NOTE | 2019-06-14 07:35 | NUR ---
PT IS AAOX4. PT HAS NOTED L SIDED WEAKNESS WITH MILD FACIAL DROOP. PT DENIES H/A AND DIZZINESS AT THIS TIME. NORMAL S1S2 NOTED. RESP EVEN AND UNLABORED. LUNG SOUNDS CTA, ON R/A. NO COUGH OR SOB. ABDOMEN SOFT, NONTENDER, NONDISTENDED. BOWEL SOUNDS ACTIVE X4 QUADS. DENIES N/V. PT HAS COLOSTOMY PLACED TO LLQ, PATENT AND DRAINING SOFT BROWN STOOL.IVF RUNNING TO LH SITE WNL. NO S/S OF INFECTION OR INFILTRATION. DENIES PAIN AT THIS TIME. CALL LIGHT WITHIN REACH. BED IN LOWEST POSITION. PT WILL BE TURNED AND REPOSITIONED Q 2 HOURS AND NEEDED. CONTACT PRECAUTION MAINTAINED. FALL PROTOCOL FOLLOWED.
--- NOTE | 2019-06-14 09:24 | NUR ---
B/P 153/45 (83), HR 66. DUE MEDS GIVEN AND TOLERATED WELL. DENIES PAIN. AT BEDSIDE. NO DISTRESS NOTED. CALL LIGHT WITHIN REACH.
[2019-06-14 09:38] VITALS: BP 137/49
--- NOTE | 2019-06-14 12:33 | NUR ---
NORCO 5/325 MG PO GIVEN FOR ABDOMINAL PAIN 04/15. EXTRA FLUIDS ENCOURAGED. RESP EVEN AND UNLABORED. NO RESP DISTRESS NOTED. INSURANCE UNDERWRITER MET WITH PT AND DISCUSED PT'S DIET ORDER. AT BEDSIDE. CONTACT PRECAUTIONS MAINTAINED. CALL LIGHT WITHIN REACH.
--- NOTE | 2019-06-14 15:05 | NUR ---
Recommendations: 1. Continue Full Liquid diet, advance to Low Fat diet per MD/CASUALTY INSURANCE CLAIM ADJUSTER and as pt tolerates 2. Add Glucerna TID w/ each meal. 3. Spoke w/ CASUALTY INSURANCE CLAIM ADJUSTER regarding recommendation(s), confirmed.
--- NOTE | 2019-06-14 15:05 | NUR ---
Initial Nutrition Assessment: (206-B) JODY LIZAMA 83M Dx: SBO PMHx: rectal CA s/p colectomy & debulking, SBO s/p colectomy & colostomy bag, CVA L-sided s/p carotid endarterectomy, Cholecystitis s/p cholcystectomy, MARCELO, HTN, DM2, HLP, Peripheral Neuropathy, Peripheral Arterial Disease PSHx: Cholescystectomy, carotid endarterectomy, SBO s/p colostomy bag, rectal caricnoma s/p debulkking and colectomy Labs: BG 131 H, BUN 21 H, Cr 0.6 L, Alb 2.1 L, ALT 12 L, Alk Ph 40 L, Trig 246 H, HDL 14 L, A1c 4.4 L, RBC 2.59 L, hgb 8.1 L, HCT L, Urine Turbid Meds: Ferrous Sulfate, Flomax, Humulin, Rocephin, Senokot, Trental, Zofran, TopRol Diet: Full Liquid PO intake since admission: 100% Ht: 67in Wt: 130# BMI: 20.4 Bed scale: Error showing IBW: 148# %IBW: 88% UBW: 130# Age: 83 Food Allergies: NKFA Skin: Estrada: 11 Edema: None noted GI: Colsotomy to LLQ draining brown liquid Last BM: 06/13 RD Note (06/14): Nursing trigger received for appears underweight/malnourished, N/V/D >3days, poor PO >3days. Consult received for moderate malnutrition. Wound Care Spcialist note, screened for low estrada: P/I prevention intervetions in place, keep skin clean/dry at all times.Noted pt and are Hungarian speaking, but speaks communicates adequately in [place]. Pt's states pt has poor PO, but encourages pt to eat as much as possible. Noted bedscale showed error message upon obtaining pt's weight. stated pt had diarrhea yesterday in his colostomy bag. expressed that pt received Ensure Enlive at bedside, refused to give to pt r/t DM. Explained to pt that I will recommend something more appropriate for pt. Problem with: Diarrhea Problems with: Chewing: No Swallowing: No Current appetite: poor Recent wt change: No %wt change: No Vitamin/Supplement use: MVM (from [employer]) Special diet at home: Regular Physical activity: N/A Nutrition education given (specify specific nutrition education and handout given): None given at this time. Food-drug interactions? Education given? None given at this time. Estimated Nutritional Needs Based on current body weight (59 kg) Energy: 1307-5463 kcal/day (35-40 kcal/kg for wt gain) Protein: 89-118 g/day (1.5-2.0 g/kg for wt gain, preserve lean body mass) Fluid: 4464-6162 mL/day (30-35 mL/kcal) or per MD Nutrition Diagnosis: Altered GI function r/t SBO, possible choledocholithiasis AEB NPO on admit for GI and possible surgery consult, need for full liquid diet Intervention 1. Continue Full Liquid diet, advance to Low Fat diet per MD/PLASTIC OUTFITTER and as pt tolerates 2. Add Glucerna TID w/ each meal. 3. Spoke w/ PLASTIC OUTFITTER regarding recommendation(s), confirmed. Monitor/Evaluate Goal: PO intake at least 75% of estimated needs Monitor: PO intake, Labs, GI function F/U in 2-3 days as high risk 06/16-06/17
--- NOTE | 2019-06-14 16:11 | NUR ---
PT'S KATIE WAS TOLD THAT THE MEDICATIONS RESTAISIS EYE DROPS AND VACEPA CAPSULES THAT HER TAKES ARE NOT CARRIED BY [facility]. PLEASE BRING THE MEDICATIONS FROM HOME AND THE PHARMACY WILL VERIFY THEM SO THE PATIENT CAN TAKE THEM WHILE IN HOSPITAL. KATIE VERBALIZED UNDERSTANDING.
[2019-06-14 17:40] VITALS: BP 122/46
--- NOTE | 2019-06-14 18:49 | NUR ---
PT IS AAOX4. RESP EVEN AND UNLABORED. NO DISTRESS NOTED. DENIES PAIN AT THIS TIME. IVF RUNNING TO LH. SITE WNL. NO S/S OF INFECTION OR INFILTRATION. CALL LIGHT WITHIN REACH. PT WAS TURNED AND REPOSITIONED Q 2 HOURS AND PRN. WILL ENDORSE ALL CARE TO NOC RN.
[2019-06-14 19:35] VITALS: BP 129/48
--- NOTE | 2019-06-14 19:45 | NUR ---
RECEIVED REPORT FROM AM NURSE. PT LAYING DOWN IN BED WITH AT BEDSIDE. PT AAOX4, FOLLOWS COMMANDS. ABLE TO MAKE NEEDS KNOWN. MED-SURG. DENIES CP/PRESSURE AT THIS TIME. PALPABLE PULSES TO ALL EXTREMETIES. MILD PITTING TO BLE NOTED. LUNG SOUNDS CTA ON RA. BREATHING EVEN AND UNLABORED. NO ACUTE DISTRESS NOTED. ABD SOFT AND NONDISTENDED. HYPOACTIVE BS TO BLQ. COLOSTOMY BAG TO LLQ WITH BROWNISH STOOL NOTED. BEDFAST AT THIS TIME. ON AIRMATRESS. WEAKNESS TO LEFT SIDE OF BODY. LEFT HEEL ULCER COVERED WITH OPTIFOAM. OPTIFOAM CDI. NS RUNNING TO LH AT 20ML/HR. SITE FREE FROM REDNESS AND SWELLING. BED AT LOWEST SETTING. SIDE RAILS X2 UP. CALL LIGHT WITHING REACH. CONTINUES AT BEDSIDE. WILL CONTINUE TO MONITOR.
--- NOTE | 2019-06-14 22:04 | NUR ---
PT C/O 05/15 ABD PAIN. MEDICATED WITH PRN NORCO PER JAN. WILL CONTINUE TO MONITOR.
--- NOTE | 2019-06-15 02:07 | NUR ---
PT LAYING DOWN IN BED WITH EYES CLOSED. BREATHING EVEN AND UNLABORED ON RA. NO ACUTE DISTRESS NOTED. WILL CONTINUE TO MONITOR.
[2019-06-15 04:50] VITALS: BP 133/42
--- NOTE | 2019-06-15 05:44 | NUR ---
PT SLEPT WELL THROGHOUT THE NIGHT. BREATHING EVEN AND UNLABORED ON RA. NO ACUTE DISTRESS NOTED. NS RUNNING TO RFA AT 20 ML/HR. SITE FREE FROM RENDESS AND SWELLING. COLOSTOMY BAG EMPTIED WITH BROWN SEMILIQUID STOOL. PT REFUSED INSULINE COVERAGE FOR BS OF 156. ALL NEEDS ASSESSED AND ATTENDED TO. BED AT LOWEST SETTING. SIDE RAILS X2 UP. CALL LIGHT WITHING REACH. AT BEDSIDE. WILL ENDORSE CARE TO AM NURSE.
[2019-06-15 06:38] LABS: BASOPHIL % 0.7 % (0-2); PLATELET COUNT 310 x10^3mcL (130-400)
[2019-06-15 06:41] LABS: RED CELL DISTRIBUTION WIDTH 15.7 % (11.5-14.5)
[2019-06-15 07:02] LABS: CALCIUM 8.5 mg/dL (8.5-10.1); CARBON DIOXIDE 21.9 mmol/L (21-32); CHLORIDE SERUM 110 mmol/L (98-107); CREATININE SERUM 0.7 mg/dL (0.7-1.3); GLUCOSE SERUM 154 mg/dL (74-106); SODIUM SERUM 140 mmol/L (136-145)
--- NOTE | 2019-06-15 07:49 | NUR ---
RECEIVED PATIENT FROM HANNA NEWSOME. PATIENT IN BED WITH NO COMPLAINTS OF PAIN, AT BEDSIDE. WILL CONTINUE TO MONITOR AT THIS TIME. CALL LIGHT IN REACH.
[2019-06-15 09:28] VITALS: BP 129/49
--- NOTE | 2019-06-15 11:10 | NUR ---
PATIENT IN BED SLEEPING AT THIS TIME. AT BEDSIDE WITH QUESTIONS ABOUT ERCP PROCEDURE AND GALLSTONES, STATING SHE WISHES TO SPEAK W EMILE CARDENAS. INFORMED HER THAT DR GARCÍA WILL BE IN TODAY TO ADDRESS HER CONCERNS. VERBALIZES UNDERSTANDING. CALL LIGHT IN REACH, NO S/S OF DISTRESS.
--- NOTE | 2019-06-15 11:36 | NUR ---
DR GARCÍA IN TO SPEAK WITH . ADDRESSED QUESTIONS ABOUT ERCP AND CONCERNS ABOUT GALLSTONES. DR GARCÍA TOLD THAT GALLBLADDER HAS PREVIOUSLY BEEN REMOVED AND PATIENT NOT LIKELY TO HAVE GALLSTONES. STATES UNDERSTANDING BUT WOULD LIKE TO CONTINUE FOR PROCEDURE. DR GARCÍA STATES EITHER ERCP OR MRI HAS TO BE DONE MONDAY AND TO LET OPTOMETRIST THERESA KNOW. OPTOMETRIST THERESA PHONED AND UPDATED TO SITUATION.
--- NOTE | 2019-06-15 13:24 | NUR ---
NOTIFIED BY RADIOLOGY THAT MRI ORDERED BY DR GARCÍA WILL BE DONE MONDAY INSTEAD OF ORDERED MONDAY DUE TO METALLIC YARN SLITTING MACHINE OPERATOR NOT PRESENT ON MONDAY. INFORMED PATIENT AND . WILL INFORM CHARGE NURSE ISIS, DR GARCÍA, AND EMILE CARDENAS. CALL LIGHT IN REACH, NO COMPLAINTS AT THIS TIME.
--- NOTE | 2019-06-15 17:00 | NUR ---
INFORMED BY LAB THAT PATIENT URINE CULTURE AND SENSITIVITY RESULTED POSITIVE TO E. COLI. PATIENT CURRENTLY ON IV ROCEPHIN WHICH IS INTERMEDIATE TO E. COLI. GAVE CALL TO EMILE CARDENAS AND MADE AWARE. CALL RETURNED TO LAB BUT NO RESPONSE AT THIS TIME. WILL ATTEMPT TO INFORM LAB AGAIN.
[2019-06-15 17:55] VITALS: BP 119/40
--- NOTE | 2019-06-15 17:57 | NUR ---
PATIENT IN BED AT THIS TIME, NO COMPLAINTS OF PAIN. WILL CONTINUE TO MONITOR AND ENDORSE TO ONCOMING NURSE. CALL LIGHT IN REACH.
[2019-06-15 19:30] VITALS: BP 141/54
--- NOTE | 2019-06-15 19:30 | NUR ---
RECEIVED PT AWAKE ALERT AND VERBALLY RESPONSIVE.TAMAZIGHT SPEAKING BUT UNDERSTAND LITTLE IVORIAN.SPOUSE AT BEDSIDE ALSO HELPING WITH INTERPRETATION.DENIES CHESTPAIN.BP 141/54 MMHG,HR 77.LLQ COLOSTOMY TO WATERY BROWNISH STOOL.EMPTIED 100 ML AT THIS TIME.ACTIVE BOWEL SOUNDS.NO N/V NOTED.ABLE TO RAISE BUE WITH GOOD COMMERCIAL CONSTRUCTION ESTIMATOR,UNABLE ON BLE.TRACED EDEMA NOTED.ELEVATED ON A PILLOW.REFUSED HEEL BOOTS.ON CONTACT ISOLATION FOR HX MRSA NARES.WILL OBSERVE GOODHANDWASHING TECHNIQUE.WILL CONTINUE TO MONITOR.
--- NOTE | 2019-06-15 20:35 | NUR ---
CALLED DR. SANTOS AND MADE AWARE PHARMACIST RECOMMENDATIONS REGADING ROCEPHIN ORDER.FROM C ROCEPHIN HAS INTERMEDIATE COVERAGE.NEW ORDER GIVEN FOR LEVAQUIN 500 MG IVPB DAILY.WILL CARRY OUT.
--- NOTE | 2019-06-16 04:36 | NUR ---
PT SLEPT WELL WITH AT BEDSIDE.MEDICATED WITH NORCO 7.5 MG PO X1 WITH GOOD RELIEF.PT ABLE TO TURN FROM SIDE TO SIDE.ALL NEEDS MET.OFF ISOLATION D/T MRSA(-) THIS ADMISSION.ALL NEEDS MET.WILL CONTINUE TO MONITOR.
[2019-06-16 05:24] VITALS: BP 147/60
[2019-06-16 06:31] LABS: CHLORIDE SERUM 109 mmol/L (98-107); CREATININE SERUM 0.5 mg/dL (0.7-1.3); GLUCOSE SERUM 161 mg/dL (74-106); POTASSIUM SERUM 3.9 mmol/L (3.5-5.1); SODIUM SERUM 140 mmol/L (136-145)
[2019-06-16 07:05] LABS: BASOPHIL % 0.9 % (0-2); PLATELET COUNT 330 x10^3mcL (130-400)
[2019-06-16 07:06] LABS: RED CELL DISTRIBUTION WIDTH 15.4 % (11.5-14.5)
--- NOTE | 2019-06-16 07:48 | NUR ---
RECEIVED PATIENT FROM HANNA MARIN. PATIENT IN BED SLEEPING. NO S/S OF DISTRESS OR SOB. WILL UPDATE PATIENT TO PLAN FOR TODAY ONCE AWAKE AND WHEN ARRIVES TO ROOM. CALL LIGHT IN REACH AT THIS TIME.
[2019-06-16 08:02] VITALS: BP 125/38
--- NOTE | 2019-06-16 09:51 | NUR ---
DR GARCÍA IN TO SPEAK WITH AT BEDSIDE. RECOMMENDED TO THAT PATIENT MRI COULD BE DONE ON OUTPATIENT BASIS, STATES SHE WOULD STILL LIKE TO PROCEED WITH MRI FOR Monday06/18/19. ALSO STATES SHE WOULD LIKE FOR PATIENT TO BE TRANSFERRED TO SNF. CHARGE NURSE ISIS AND STERILE PROCESSING MANAGER THERESA MADE AWARE. PT EVAL ALREADY ORDERED BY STERILE PROCESSING MANAGER.
--- NOTE | 2019-06-16 10:29 | NUR ---
PATIENT AT BEDSIDE, VOLUNTEERED TO CHANGE COLOSTOMY BAG AND DO STOMA CARE. STOMA CONTINUES TO DRAIN, RED, MOIST, SKIN AROUND STOMA INTACT AND FREE FROM MOISTURE. CALL LIGHT IN REACH AT THIS TIME.
--- NOTE | 2019-06-16 14:53 | NUR ---
PATIENT SEEN IN BED SLEEPING. NO SIGNS OF PAIN OR DISTRESS. WILL CONTINUE TO MONITOR.
[2019-06-16 16:15] VITALS: BP 116/44
--- NOTE | 2019-06-16 18:28 | NUR ---
PATIENT SEATED IN BED AT THIS TIME. MILD COMPLAINTS OF DYSURIA. AT BEDSIDE. COLOSTOMY EMPTIED 300 ML, BROWN-ORANGE WATERY. WILL ENDORSE TO ONCOMING NURSE. NEW IV INSERTED TO LEFT HAND 22G. CALL LIGHT IN REACH.
[2019-06-16 19:15] VITALS: BP 124/49
--- NOTE | 2019-06-16 19:15 | NUR ---
RECEIVED PT AWAKE ALERT AND VERBALLY RES[PONSIVE WITH AT BEDSIDE.GERMAN SPEAKING. HELPING WITH TRANSLATION.DENIES ANY PAIN AT THIS TIME.L HEIPARESIS.ABLE TO RAISE BUE WITH GOOD TEACHER OF THE SIGHT IMPAIRED.UNABLE ON BLE.COLOSTOMY TO LLQ.NO OUTPUT AT THIS TIME.BOTH HEELS ELEVATED ON A PILLOW.BP 124/49 MMHG,HR 69.WILL CONTINUE TO MONITOR.
--- NOTE | 2019-06-17 04:35 | NUR ---
PT SLEPT WELL ALL NIGHT WITH AT BEDSIDE AND SUPPORTIVE WITH CARE.DENIES ANY PAIN AT THIS TIME.NORCO 7.5 MG PO ADMINISTERED X1 WITH GOOD RELIEF.ALL NEEDS MET.WILL CONTINUE TO MONITOR.
[2019-06-17 05:53] VITALS: BP 127/55
[2019-06-17 06:14] LABS: BASOPHIL % 0.7 % (0-2); PLATELET COUNT 301 x10^3mcL (130-400)
[2019-06-17 06:32] LABS: CALCIUM 9.3 mg/dL (8.5-10.1); CARBON DIOXIDE 23.3 mmol/L (21-32); CHLORIDE SERUM 106 mmol/L (98-107); CREATININE SERUM 0.7 mg/dL (0.7-1.3); GLUCOSE SERUM 162 mg/dL (74-106); POTASSIUM SERUM 4.4 mmol/L (3.5-5.1); SODIUM SERUM 138 mmol/L (136-145)
[2019-06-17 06:38] LABS: RED CELL DISTRIBUTION WIDTH 15.5 % (11.5-14.5)
--- NOTE | 2019-06-17 08:00 | NUR ---
SHIFT ASSESSMENT DONE. PATIENT ALERT/ORIETNED X3. ABLE TO MADE NEEDS KNOWN. HEMIPLEGIC. ABLE TO MOVE BUE, NO MOVEMENT TO BLE. NO RESP DISTRESS ON RA. DENIED CHEST PAIN. IVHL'D TO LFA. PATIENT HAD COLOSTOMY TO LLQ ABD. NO BM IN BAG NOW. SCD TO BLE. BUT PATIENT REFUSED. ON AIR MATTRESS. VOID VIA URINAL. DENIED PAIN NOW. AT BED SIDE.
[2019-06-17 09:22] VITALS: BP 128/50
--- NOTE | 2019-06-17 14:25 | NUR ---
Follow-up Nutrition Assessment: JODY LIZAMA HR Dx: SBO PMHx: Rectal Cancer S/P Colectomy and debulking, SBO s/p Colectomy and colostomy bag, CVA left sided s/p Carotid endarterectomy, Cholecystitis s/p Cholecystectomy, left sided CVA s/p Rt carotid endarterectomy, HTN, DM, HLD, Peripheral Neuropathy Peripheral Arterial Disease Labs: (06/17) BG 162H, BUN 19H Meds: Cephulac, D 50%, ferrous sulfate, humulin, lactinex, Zofran Diet: Regular PO Intake: (06/17) breakfast 100%, (06/16) breakfast, lunch 50%, dinner 80% Weights: (06/13) 58.9 kg, (06/17) unable to take as bed scale was zerod. Skin: intact Estrada: 14 I/Os: (06/17) 1690/600 (1090) Edema: none GI: colostomy Last BM: 06/16 RDN Visit (06/17): Patient was alert and oriented and was underdoing PT session. Per family member, pt. ate most of his breakfast this morning and is also drinking Glucerna. Per progress note (06/17) pt. will have an MRCP tomorrow. Estimated Nutritional Needs based on current body weight 59 kg Energy: 6675-9697 kcal/d (35-40 kcal/kg)- weight gain, CA diagnosis Protein: 89-118 g/d (1.5-2.0 g/kg)- preserve LBM, CA diagnosis Fluid: 3113-0983 (30-35 ml/kg) or per MD Nutrition Diagnosis 1. 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 (improving as pt. has bowel movement, diet progressed) Intervention 1. Recommend CCHO (Cardiac) diet w/ Glucerna TID. Discussed recommendations with PAINTING DEPARTMENT SUPERVISOR Leandra. Monitor/Evaluate Goal: Have pt meet at least 75% of estimated needs Monitor: PO intake, Labs, GI function F/U in 3-5 days as moderate risk 06/20-
--- NOTE | 2019-06-17 14:25 | NUR ---
1. Recommend CCHO (Cardiac) diet w/ Glucerna TID. Discussed recommendations with EMILE Mobley.
[2019-06-17 17:21] VITALS: BP 133/60
--- NOTE | 2019-06-17 19:00 | NUR ---
CONDITION STABLE. NO SIGNIFICANT CHANGE. IVHL'D TO L HAND. SEMI-LIQUID BM VIA COLOSTOMY BAG, 300CC MEASURED. VOID X2 VIA URINAL, PAD CHANGED X3 W/ INCONT URINE. TOLERATED REGULAR DIET BY FEEDING. NO C/O PAIN THIS SHIFT. ON AIR MATTRESS. ENDORSED CARE TO [facility] NURSE.
--- NOTE | 2019-06-17 19:00 | NUR ---
PT RECEIVED FROM THE DAY SHIFT RN. PT IS ALERT AND ORIENTED X4, CALM AND COOPERATIVE WITH CARE. AND SON IS AT THE BEDSIDE. PT HAS NO COMPLAINT OF PAIN AT THIS TIME. HOWEVER PT STATES PAIN OF 7/10 WHEN URINATING AND STATES A BURNING SENSATION. PT STATES NORCO DOES RELIEVE PAIN. SAFETY AND COMFORT MEASURES MAINTAINED, BED IN LOWEST POSITION, CALL LIGHT WITHIN REACH.
[2019-06-17 20:28] VITALS: BP 153/54
--- NOTE | 2019-06-17 21:00 | NUR ---
PRN NORCO GIVEN FOR BLADDER/LOWER ABDOMINAL PAIN.
--- NOTE | 2019-06-18 00:54 | NUR ---
PT IS RESTING IN BED WITH EYES CLOSED AT THIS TIME. PT HAS NO COMPLAINT OF PAIN AT THIS TIME. IS AT THE BEDSIDE. PT HAS BEEN CALM AND COOPERATIVE WITH CARE, SAFETY AND COMFORT MEASURES MAINTAINED, BED IN LOWEST POSITION, IV SALINE LOCKED AND PATENT. WILL CONTINUE TO MONITOR AT THIS TIME.
[2019-06-18 05:25] VITALS: BP 112/49
--- NOTE | 2019-06-18 05:29 | NUR ---
PT HAS RESTED IN INTERMITTENT INTERVALS THROUGHOUT THE SHIFT. PT HAS BEEN ALERT AND ORIENTED X4, CALM AND COOPERATIVE WITH CARE. NO ACUTE DISTRESS NOTED. PT SPOUSE IS AT THE BEDSIDE. PT HAS NO COMPLAINT OF PAIN AT THIS TIME. COLOSTOMY BAG NOTED ON THE LLQ, DRAINING BROWN SOFT STOOL. IV IS SALINE LOCKED AND INTACT. SAFETY AND COMFORT MEASURES MAINTAINED, BED IN LOWEST POSITION, CALL LIGHT WITHIN REACH, WILL ENDORSE CONTINUITY OF CARE TO THE ONCOMING RN.
[2019-06-18 06:24] LABS: BASOPHIL % 0.9 % (0-2); PLATELET COUNT 316 x10^3mcL (130-400)
[2019-06-18 06:50] LABS: RED CELL DISTRIBUTION WIDTH 15.6 % (11.5-14.5)
[2019-06-18 07:30] LABS: CALCIUM 9.7 mg/dL (8.5-10.1); CARBON DIOXIDE 19.8 mmol/L (21-32); CHLORIDE SERUM 105 mmol/L (98-107); CREATININE SERUM 0.6 mg/dL (0.7-1.3); GLUCOSE SERUM 153 mg/dL (74-106); SODIUM SERUM 134 mmol/L (136-145)
--- NOTE | 2019-06-18 08:00 | NUR ---
HIFT ASSESSMENT DONE. PATIENT A/A/OX3; [place]. DENIED CHEST PAIN. NO RESP DISTRESS ON RA. NPO PER ORDER FOR MICP THIS MORNING. COLOSTOMY TO LLQ ABD; SEMI-LIQUID STOOL TO BAG NOTED. BAG INTACT. URINE INCONT. IVHL'D TO L HAND W/ 24G NEEDLE. DENIED PAIN. ON AIR MATTRESS. PATIENT REFUSED SCD TO BLE. AT BED SIDE. CALL LIGHT IN REACH.
[2019-06-18 09:27] VITALS: BP 139/58
--- NOTE | 2019-06-18 10:25 | NUR ---
DR GARCÍA NOTIFIED ABOUT MRCP RESULT. PER DR GARCÍA NO NEED FOR ERCP, PATIENT CAN BE DISCHARGED TODAY. EDUIN Castro NP MADE AWARE. ATTENDING NURSE DL AWARE.
[2019-06-18 10:33] LABS: BILIRUBIN DIRECT 0.18 mg/dL (0.0-0.2); BILIRUBIN TOTAL 0.3 mg/dL (0.20-1.00)
[2019-06-18 10:43] LABS: ALBUMIN 2.5 g/dL (3.4-5.0)
[2019-06-18] MEDS ORDERED: LEV500PM IV (12:45)
--- NOTE | 2019-06-18 14:31 | NUR ---
PHYSICAL THERAPY DAILY NOTES CO-SIGN All documentation done by the [employer] Selector for 06/18/19 has been reviewed. I agree with the documentation. Reviewed/Co-Signed by: Ysabel Gaona PT Documentation Done by: NASIM RILEY PTA
[2019-06-18 15:19] VITALS: BP 139/58
--- NOTE | 2019-06-18 16:00 | NUR ---
PATIENT HAD SEMI LIQUID BM X2 VIA COLOSTOMY. VOID/INCONT X4 AFTER LASIX GIVEN. DENIED PAIN. CONDITION STABLE.
--- NOTE | 2019-06-18 16:27 | NUR ---
PATIENT D/C TO [facility], VIA MADICAL TRANSPORTATION. IVHL'D TO [facility]. REPORT WOUND BE GIVEN. CONDITION STABLE.
--- NOTE | 2019-06-18 16:30 | NUR ---
REPORT GIVEN TO ADRIANA, NURSING FISHERIES BIOLOGIST OF EILEEN WAGGONER.
== END 2019-06-18 16:30 | DRG 388 ==
LOC: ED 17:38 → MU 22:21
PROVIDERS: Emergency Medicine; Internal Medicine Gastroenterology; ADMIT Internal Medicine
DX: K56.609 Unspecified intestinal obstruction, unspecified as to partial versus complete obstruction (principal); N17.0 Acute kidney failure with tubular necrosis; E43 Unspecified severe protein-calorie malnutrition; I69.354 Hemiplegia and hemiparesis following cerebral infarction affecting left non-dominant side; N39.0 Urinary tract infection, site not specified; R31.9 Hematuria, unspecified; B96.20 Unspecified Escherichia coli [E. coli] as the cause of diseases classified elsewhere; E11.65 Type 2 diabetes mellitus with hyperglycemia; E11.42 Type 2 diabetes mellitus with diabetic polyneuropathy; E11.51 Type 2 diabetes mellitus with diabetic peripheral angiopathy without gangrene; I10 Essential (primary) hypertension; R80.9 Proteinuria, unspecified; D50.0 Iron deficiency anemia secondary to blood loss (chronic); Z85.048 Personal history of other malignant neoplasm of rectum, rectosigmoid junction, and anus; Z93.3 Colostomy status; Z92.21 Personal history of antineoplastic chemotherapy; Z92.3 Personal history of irradiation; Z79.84 Long term (current) use of oral hypoglycemic drugs; Z87.891 Personal history of nicotine dependence; Z68.20 Body mass index [BMI] 20.0-20.9, adult
CPT/HCPCS: 74181; 82962; 97110-GP; 97530-GP; G0378; J0696; J1956; J2185; J2270; J2405; J3490; J7030; Q0092